=== PATIENT | male | born 1960 | race Caucasian/White ===

== ENCOUNTER 2023-07-13 08:47 | Outpatient (OUT) | payer OTHER, SELFPAY ==
[2023-07-13 09:06] LABS: Basophils Absolute Auto 0.1 10^3/uL (0.0-0.1); Basophils Percent Auto 0.5 % (0.2-2.0); Eosinophils Absolute Auto 0.2 10^3/uL (0.0-0.7); Eosinophils Percent Auto 2.4 % (0.9-7.0); Hematocrit 49.3 % (42.0-54.0); Hemoglobin 16.6 g/dL (14.0-18.0); Immature Granulocytes Abs Auto 0.04 10^3/uL (0.00-0.03); Immature Granulocytes Pct Auto 0.4 % (0.0-0.5); Lymphocytes Absolute Auto 1.7 10^3/uL (1.2-3.8); Lymphocytes Percent Auto 17.9 % (20.5-60.0); Mean Corpuscular HGB Conc 33.7 g/dL (29.9-35.2); Mean Corpuscular Volume 92.1 fL (80.0-94.0); Mean Platelet Volume 9.9 fL (9.5-13.5); Monocytes Absolute Auto 0.7 10^3/uL (0.3-0.8); Neutrophils Absolute Auto 6.7 10^3/uL (1.4-6.5); Neutrophils Percent Auto 71.8 % (43.0-75.0); Platelet Count 174 10^3/uL (150-450); Red Blood Count 5.35 10^6/uL (4.70-6.10); Red Cell Distribution Width 13.2 % (11.0-15.0); White Blood Count 9.4 10^3/uL (4.0-11.0)
[2023-07-13 10:27] LABS: Alanine Aminotransferase 19 U/L (16-63); Albumin Level 3.7 g/dL (3.4-5.0); Alkaline Phosphatase 69 U/L (46-116); Anion Gap 10.7; Aspartate Amino Transferase 17 U/L (15-37); BUN Creatinine Ratio 16.3; Bilirubin Total 0.6 mg/dL (0.2-1.0); Calcium 9.5 mg/dL (8.5-10.1); Carbon Dioxide 29.9 mmol/L (21.0-32.0); Chloride 103 mmol/L (98-107); Chol HDL Ratio 4.7; Cholesterol 185 mg/dL (<=200); Estimated GFR (African America >60 (>=60); Estimated GFR (Non-African Ame 59 (>=60); Globulin 3.8 g/dL; Glucose 109 mg/dL (74-106); HDL Cholesterol 39 mg/dL (40-60); Potassium 5.6 mmol/L (3.5-5.1); Sodium 138 mmol/L (136-145); Total Protein 7.5 g/dL (6.4-8.2); Triglycerides 210 mg/dL (<=150)
[2023-07-13 10:43] LABS: Estimated Average Glucose 105 mg/dL; Glycohemoglobin A1C 5.3 % (4.5-6.2)
== END 2023-07-13 08:48 | disposition home or self-care (01) ==
PROVIDERS: PCP Nurse Practitioner Family; Visit Provider Nurse Practitioner Family
DX: Z00.00 Encounter for general adult medical examination without abnormal findings (principal); Z12.5 Encounter for screening for malignant neoplasm of prostate
CPT/HCPCS: 36415; 80053; 80061; 83036; 85025; G0103

== ENCOUNTER 2023-07-17 15:30 | Outpatient (OUT) | payer OTHER, SELFPAY ==
[2023-07-17 16:47] LABS: Anion Gap 14.3; BUN Creatinine Ratio 20.2; Calcium 8.8 mg/dL (8.5-10.1); Chloride 103 mmol/L (98-107); Estimated GFR (African America >60 (>=60); Estimated GFR (Non-African Ame >60 (>=60); Glucose 119 mg/dL (74-106); Potassium 4.3 mmol/L (3.5-5.1); Sodium 139 mmol/L (136-145)
== END 2023-07-17 15:31 | disposition home or self-care (01) ==
LOC: LAB 15:32
PROVIDERS: PCP Nurse Practitioner Family; Visit Provider Nurse Practitioner Family
DX: E87.5 Hyperkalemia (principal)
CPT/HCPCS: 36415; 80048

== ENCOUNTER 2024-04-28 16:24 | Outpatient (OUT) | payer OTHER, SELFPAY ==
--- NOTE | 2024-04-28 | XR_ITS ---
The [address] [address] Patient Name: HELLEN FRANCISCO MRN: [id number] date: 1960 Sex: M Assigned Patient Location: [facility] Current Patient Location: Accession/Order Number: [id number] Exam Date: 04/28/2024 16:31 Report Date: 04/30/2024 07:21 At the request of: TABBY CUNNINGHAM Procedure: XR chest 2V EXAMINATION: XR chest 2V HISTORY: Dyspnea COMPARISON: No relevant comparison available. FINDINGS: LUNGS: No significant pulmonary parenchymal abnormalities. VASCULATURE: No increased pulmonary vasculature. PLEURA: No pneumothorax, effusion, or pleural thickening. CARDIAC: No cardiomegaly or cardiac silhouette abnormality. MEDIASTINUM: No visible mass or adenopathy. BONES: No fracture or visible bone lesion. OTHER: Negative. XR/XR chest 2V IMPRESSION: 1. No acute cardiopulmonary process or appreciable significant chronic interstitial changes. Electronically authenticated by: CHERRY JOHN Date: 04/30/2024 07:21
--- OUTSIDE RECORDS SUMMARY | 2024-04-28 16:39 | XMS_ITS | CCD ---
Author Organization [facility] Care Team Providers Care Blender Helper Name Role Phone MARISA FARZANEH Primary Care Unavailable ZIEBER, DR CHERRY Lopez Consulting Unavailable MARISA, FARZANEH Attending Unavailable MARISA, FARZANEH Admitting Unavailable MARISA, FARZANEH Consulting Unavailable MARISA, FARZANEH Primary Care Unavailable MARISA, FARZANEH Admitting Unavailable MARISA, FARZANEH Attending Unavailable ZIEBER, DR CHERRY Lopez Consulting Unavailable MARISA, FARZANEH Consulting Unavailable MARISA, FARZANEH Consulting Unavailable MARISA, FARZANEH Primary Care Unavailable MARISA, FARZANEH Admitting Unavailable MARISA, FARZANEH Attending Unavailable MARISA, FARZANEH Primary Care Unavailable TIMMIS, DR PRABHAKAR Admitting Unavailable TIMMIS, DR PRABHAKAR Attending Unavailable TIMMIS, DR PRABHAKAR Consulting Unavailable SHARP, KANDI Consulting Unavailable BROWN, CORINNA Consulting Unavailable KUCHIPUDI, ROD Consulting Unavailable MARISA, FARZANEH Primary Care Unavailable TIMMIS, DR PRABHAKAR Admitting Unavailable TIMMIS, DR PRABHAKAR Attending Unavailable TIMMIS, DR PRABHAKAR Consulting Unavailable MARISA, FARZANEH Primary Care Unavailable TIMMIS, DR PRABHAKAR Attending Unavailable TIMMIS, DR PRABHAKAR Consulting Unavailable TIMMIS, DR PRABHAKAR Admitting Unavailable ZIEBER, DR CHERRY Lopez Consulting Unavailable MARISA, FARZANEH Admitting Unavailable MARISA, FARZANEH Attending Unavailable MARISA, FARZANEH Primary Care Unavailable MARISA, FARZANEH Consulting Unavailable MARISA, FARZANEH Primary Care Unavailable TIMMIS, DR PRABHAKAR Admitting Unavailable TIMMIS, DR PRABHAKAR Attending Unavailable TIMMIS, DR PRABHAKAR Consulting Unavailable MORAN, ADRIAN Consulting Unavailable SIMIN ROMERO Consulting Unavailable MARISA, FARZANEH Admitting Unavailable MARISA, FARZANEH Attending Unavailable MARISA, FARZANEH Primary Care Unavailable Allergies Allergy Classification Reported Allergen(s) Allergy Type Date of Onset Reaction(s) Facility (1 source) strawberry allergenic extract Drug Allergy [facility] Repository Problems Active Problems Problem Classification Problem Date Documented Da te Episodic/Chronic Diseases of mouth; excluding dental (8 sources) Other diseases of salivary glands; Translations: [Other diseases of tongue] Onset: 08-10-2022 Episodic Disorders of lipid metabolism (5 sources) Pure hypercholesterole trevon, unspecified; Translations: [Hyperlipidemia, unspecified] Onset: 10-08-2022 Chronic Essential hypertension (1 source) Essential (primary) hypertension; Translations: [ESSENTIAL PRIMARY HYPERTENSION] Onset: 10-25-2022 Chronic Other aftercare (1 source) Other fpc (current) drug therapy; Translations: [OTH PENITENTIARY CURRENT DRUG THERAPY] Onset: 10-25-2022 Episodic Other and unspecified benign neoplasm (1 source) Benign neoplasm of parotid gland; Translations: [BENIGN NEOPLASM OF PAROTID GLAND] Onset: 10-25-2022 Episodic Other and unspecified benign neoplasm (1 source) Benign neoplasm of tongue; Translations: [BENIGN NEOPLASM OF TONGUE] Onset: 09-03-2022 Episodic Substance-related disorders (2 sources) Nicotine dependence, other tobacco product, uncomplicated; Translations: [Nicotine dependence, cigarettes, uncomplicated] Onset: 09-03-2022 Chronic Unclassified (1 source) CONTACT W/AND (SUSP) EXPOS COVID-19; Translations: [CONTACT W/AND (SUSP) EXPOS COVID-19] Onset: 10-09-2022 Past or Other Problems Problem Classification Problem Date Documented Da te Episodic/Chronic Lymphadenitis (4 sources) Other nonspecific lymphadenitis; Translations: [OTHER NONSPECIFIC LYMPHADENITIS] Onset: 07-07-2022 Episodic Other screening for suspected conditions (not mental disorders or infectious disease) (1 source) Encounter for screening for malignant neoplasm of prostate; Translations: [ENC SCREEN MALIG NEOPLASM PROSTATE] Onset: 06-19-2022 Episodic Other skin disorders (1 source) Localized swelling, mass and lump, unspecified; Translations: [LOCALIZED SWELLING MASS AND LUMP UNS] Onset: 06-19-2022 Episodic Results Test Name Value Interpretation Reference Range Facility LIPID PROFILEon 10-08-2022 CHOL-HDL RATIO NORM SEE BELOW Normal [facility] Comment on above: Result Comment: 3.3 - 4.4 LOW RISK 4.4 - 7.1 AVERAGE RISK 7.1 - 11.0 MODERATE RISK >11.0 HIGH RISK Performed By: #### C MP, LIPID #### [facility] [address] [address] [address] Isi Bruno Cholesterol [Mass/Vol] 175 mg/dL Normal <=200 [facility] Comment on above: Performed By: #### C MP, LIPID #### [facility] [address] [address] [address] Isi Bruno Cholesterol in HDL [Mass/Vol] 37 mg/dL Critically low 40-60 [facility] Comment on above: Performed By: #### C MP, LIPID #### [facility] [address] [address] [address] Isi Bruno Cholesterol in LDL [Mass/Vol] 102.6 mg/dL Normal [facility] Comment on above: Performed By: #### C MP, LIPID #### [facility] [address] [address] [address] Isi Bruno Cholesterol.total/Cho lesterol in HDL [Mass ratio] 4.7 {ratio} Normal [facility] Comment on above: Performed By: #### C MP, LIPID #### [facility] [address] [address] [address] Isi Bruno HDL NORMAL > or = 60 mg/dl - LO W CARDIOVASCULAR RISK <40 mg/dl - HIGH CARDIOVASCULAR RISK Normal [facility] Comment on above: Performed By: #### C MP, LIPID #### [facility] [address] [address] [address] Isi Bruno LDL CALC NORMAL SEE BELOW Normal [facility] Comment on above: Result Comment: <100 mg/dl OPTIMAL 100 - 129 mg/dl NEAR OR ABOVE OPTIMAL 130 - 159 mg/dl BORDERLINE HIGH 160 - 189 mg/dl HIGH >190 mg/dl VERY HIGH Performed By: #### C MP, LIPID #### [facility] [address] [address] [address] Isi Bruno Triglyceride [Mass/Vol] 177 mg/dL Critically high <=150 [facility] Comment on above: Performed By: #### C MP, LIPID #### [facility] [address] [address] [address] Isi Bruno VLDL CALC 35.4 mg/dL Normal [facility] Comment on above: Performed By: #### C MP, LIPID #### [facility] [address] [address] [address] Isi Bruno PROF 14(COMP METB)on 022 Albumin [Mass/Vol] 3.5 g/dL Normal 3.4-5.0 [facility] Comment on above: Performed By: #### C MP, LIPID #### [facility] [address] [place] [address] Dr. Isi Bruno Albumin/Globulin [Mass ratio] 1.0 {ratio} Normal [facility] Comment on above: Performed By: #### C MP, LIPID #### [facility] [address] [place] [address] Dr. Isi Bruno ALP [Catalytic activity/Vol] 65 U/L Normal 46-116 [facility] Comment on above: Performed By: #### C MP, LIPID #### [facility] [address] [place] [address] Dr. Isi Bruno ALT [Catalytic activity/Vol] 15 U/L Critically low 16-63 [facility] Comment on above: Performed By: #### C MP, LIPID #### [facility] [address] [place] [address] Dr. Isi Bruno Anion gap [Moles/Vol] 8.3 mmol/L Normal [facility] Comment on above: Performed By: #### C MP, LIPID #### [facility] [address] [place] [address] Dr. Isi Bruno AST [Catalytic activity/Vol] 12 U/L Critically low 15-37 [facility] Comment on above: Performed By: #### C MP, LIPID #### [facility] [address] [place] [address] Dr. Isi Bruno Bilirubin [Mass/Vol] 0.4 mg/dL Normal 0.2-1.0 [facility] Comment on above: Performed By: #### C MP, LIPID #### [facility] [address] [place] [address] Dr. Isi Bruno Calcium [Mass/Vol] 8.8 mg/dL Normal 8.5-10.1 [facility] Comment on above: Performed By: #### C MP, LIPID #### [facility] [address] [place] [address] Dr. Isi Bruno Chloride [Moles/Vol] 104 mmol/L Normal 98-107 [facility] Comment on above: Performed By: #### C MP, LIPID #### [facility] [address] [place] [address] Dr. Isi Bruno CO2 [Moles/Vol] 28.3 mmol/L Normal 21.0-32.0 [facility] Comment on above: Performed By: #### C MP, LIPID #### [facility] [address] [place] [address] Dr. Isi Bruno Creatinine [Mass/Vol] 1.24 mg/dL Normal 0.70-1.30 [facility] Comment on above: Performed By: #### C MP, LIPID #### [facility] [address] [place] [address] Dr. Isi Bruno EGFR-AF ISRAELI >60 Normal >=60 [facility] Comment on above: Performed By: #### C MP, LIPID #### [facility] [address] [place] [address] Dr. Isi Bruno EGFR-NON AF ISRAELI 59 mL/min/1.73m2 Critically low >=60 [facility] Comment on above: Performed By: #### C MP, LIPID #### [facility] [address] [place] [address] Dr. Isi Bruno Globulin (S) [Mass/Vol] 3.4 g/dL Normal [facility] Comment on above: Performed By: #### C MP, LIPID #### [facility] [address] [place] [address] Dr. Isi Bruno Glucose [Mass/Vol] 101 mg/dL Normal 74-[address] [facility] Comment on above: Performed By: #### C MP, LIPID #### [facility] [address] [place] [address] Dr. Isi Bruno Potassium [Moles/Vol] 4.6 mmol/L Normal 3.5-5.1 [facility] Comment on above: Performed By: #### C MP, LIPID #### [facility] [address] [place] [address] Dr. Isi Bruno Protein [Mass/Vol] 6.9 g/dL Normal 6.4-8.2 [facility] Comment on above: Performed By: #### C MP, LIPID #### [facility] [address] [place] [address] Dr. Isi Bruno Sodium [Moles/Vol] 136 mmol/L Normal 136-145 [facility] Comment on above: Performed By: #### C MP, LIPID #### [facility] [address] [place] [address] Dr. Isi Bruno Urea nitrogen [Mass/Vol] 21.0 mg/dL Critically high 7.0-18.0 [facility] Comment on above: Performed By: #### C MP, LIPID #### [facility] [address] [place] [address] Dr. Isi Bruno Urea nitrogen/Creatinine [Mass ratio] 16.9 mg/mg Normal [facility] Comment on above: Performed By: #### C MP, LIPID #### [facility] [address] [place] [address] Dr. Isi Bruno Covid-19 PCR ([facility])on 09-25 SARS-CoV-2 (COVID-19) RNA DENISA+probe Ql (Unsp spec) Not detected Normal NOT DETECTED [facility] Comment on above: Result Comment: This test is not yet approved or cleared by the [place] FDA. When there are no FDA-approved or cleared tests available, and other criteria are met, FDA can make tests available under an emergency access mechanism called an Emergency Use Authorization (EUA). The EUA for this test is supported by the Instrumentation And Control Technician of Health and Human Service's (HHS's) declaration that circumstances exist to justify the emergency use of in vitro diagnostics for the detection and/or diagnosis of the virus that causes COVID-19. This EUA will remain in effect (meaning this test can be used) for the duration of the COVID-19 declaration justifying emergency of IVDs, unless it is terminated or revoked by FDA (after which the test may no longer be used). When diagnostic testing is negative, the possibility of a false negative should be considered in the context of a patient's recent exposures and the presence of clinical signs and symptoms consistent with SARS-CoV-2. Performed By: #### C VDTB ####[facility] [id number] [place], [place] [id number]. Isi Bruno CBC AUTO DIFFon 08-24-2022 BASO # 0.0 103/ul Normal 0.0-0.1 [facility] Comment on above: Performed By: #### C BC #### [facility] [address] [address] [address] Isi Bruno Basophils/100 WBC (Bld) 0.5 % Normal 0.2-2.0 [facility] Comment on above: Performed By: #### C BC #### [facility] [address] [place] [address] Dr. Isi Bruno EO # 0.2 103/ul Normal 0.0-0.7 [facility] Comment on above: Performed By: #### C BC #### [facility] [address] [address] [address] Isi Bruno Eosinophils/100 WBC (Bld) 2.0 % Normal 0.9-7.0 [facility] Comment on above: Performed By: #### C BC #### [facility] [address] [address] [address] Isi Bruno Erythrocyte distribution width (RBC) [Ratio] 13.3 % Normal 11.0-15.0 [facility] Comment on above: Performed By: #### C BC #### [facility] [address] [place] [address] Dr. Isi Bruno Hematocrit (Bld) [Volume fraction] 45.3 % Normal 42.0-54.0 [facility] Comment on above: Performed By: #### C BC #### [facility] [address] [place] [address] Dr. Isi Bruno Hemoglobin (Bld) [Mass/Vol] 15.1 g/dL Normal 14.0-18.0 [facility] Comment on above: Performed By: #### C BC #### [facility] [address] [address] [address] Isi Bruno IG # 0.03 10e3/ul Normal 0.00-0.03 [facility] Comment on above: Performed By: #### C BC #### [facility] [address] [address] [address] Isi Bruno IG % 0.3 % Normal 0.0-0.5 [facility] Comment on above: Performed By: #### C BC #### [facility] [address] [place] [address] Dr. Isi Bruno LYMPH # 1.3 103/ul Normal 1.2-3.8 [facility] Comment on above: Performed By: #### C BC #### [facility] [address] [place] [address] Dr. Isi Bruno Lymphocytes/100 WBC (Bld) 14.9 % Critically low 20.5-60.0 [facility] Comment on above: Performed By: #### C BC #### [facility] [address] [place] [address] Dr. Isi Bruno MANUAL DIFF REQ NO Normal [facility] Comment on above: Performed By: #### C BC #### [facility] [address] [place] [address] Dr. Isi Bruno MCH (RBC) [Entitic mass] 30.8 pg Normal 25.9-34.0 [facility] Comment on above: Performed By: #### C BC #### [facility] [address] [place] [address] Dr. Isi Bruno MCHC (RBC) [Mass/Vol] 33.3 g/dL Normal 29.9-35.2 [facility] Comment on above: Performed By: #### C BC #### [facility] [address] [place] [address] Dr. Isi Bruno MCV (RBC) [Entitic vol] 92.3 fL Normal 80.0-94.0 [facility] Comment on above: Performed By: #### C BC #### [facility] [address] [place] [address] Dr. Isi Bruno MONO # 0.7 103/ul Normal 0.3-0.8 [facility] Comment on above: Performed By: #### C BC #### [facility] [address] [place] [address] Dr. Isi Bruno Monocytes/100 WBC (Bld) 7.7 % Normal 1.7-12.0 [facility] Comment on above: Performed By: #### C BC #### [facility] [address] [place] [address] Dr. Isi Bruno NEUT # 6.5 103/ul Normal 1.4-6.5 [facility] Comment on above: Performed By: #### C BC #### [facility] [address] [place] [address] Dr. Isi Bruno Neutrophils/100 WBC (Bld) 74.6 % Normal 43.0-75.0 [facility] Comment on above: Performed By: #### C BC #### [facility] [address] [place] [address] Dr. Isi Bruno Platelet mean volume (Bld) [Entitic vol] 10.4 fL Normal 9.5-13.5 [facility] Comment on above: Performed By: #### C BC #### [facility] [address] [place] [address] Dr. Isi Bruno PLT 171 103/ul Normal 150-450 [facility] Comment on above: Performed By: #### C BC #### [facility] [address] [place] [address] Dr. Isi Bruno RBC 4.91 106/ul Normal 4.70-6.10 [facility] Comment on above: Performed By: #### C BC #### [facility] [address] [place] [address] Dr. Isi Bruno WBC 8.7 103/ul Normal 4.0-11.0 [facility] Comment on above: Performed By: #### C BC #### [facility] [address] [place] [address] Dr. Isi Bruno Covid-19 PCR ([facility])on 07-28 SARS-CoV-2 (COVID-19) RNA DENISA+probe Ql (Unsp spec) Not detected Normal NOT DETECTED [facility] Comment on above: Result Comment: This test is not yet approved or cleared by the [place] FDA. When there are no FDA-approved or cleared tests available, and other criteria are met, FDA can make tests available under an emergency access mechanism called an Emergency Use Authorization (EUA). The EUA for this test is supported by the Instrumentation And Control Technician of Health and Human Service's (HHS's) declaration that circumstances exist to justify the emergency use of in vitro diagnostics for the detection and/or diagnosis of the virus that causes COVID-19. This EUA will remain in effect (meaning this test can be used) for the duration of the COVID-19 declaration justifying emergency of IVDs, unless it is terminated or revoked by FDA (after which the test may no longer be used). When diagnostic testing is negative, the possibility of a false negative should be considered in the context of a patient's recent exposures and the presence of clinical signs and symptoms consistent with SARS-CoV-2. Performed By: #### C VDTBH #### [facility] [address] [place] [address] Dr. Isi Bruno PROTIMEon 08-24-2022 INR Coag (PPP) [Relative time] 1.04 {INR} Normal [facility] Comment on above: Performed By: #### P T, PTT #### [facility] [address] [place] [address] Dr. Isi Bruno INR GUIDELINES SEE BELOW Normal [facility] Comment on above: Result Comment: COLLIN RED INR: 2.0 - 3.0 CONDITIONS NOT LISTED BELOW 2.5 - 3.5 FOR PROSTHETIC HEART VALVE REPLACEMENT 2.5 - 3.5 RECURRENT THROMBOSIS Performed By: #### P T, PTT #### [facility] [address] [place] [address] Dr. Isi Bruno PT Coag (PPP) [Time] 11.2 s Normal 9.0-11.6 [facility] Comment on above: Performed By: #### P T, PTT #### [facility] [address] [place], [place] [address] Dr. Isi Bruno PTTon 08-24-2022 aPTT Coag (Bld) [Time] 33.0 s Normal 22.3-36.2 [facility] Comment on above: Performed By: #### P T, PTT #### [facility] [address] [place], [place] [address] Dr. 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 08/09/2022 Faxed to Farzaneh Flores CNP. 08/10/2022 Verified with office nurse that report was present in the office. Original Report EXAMINATION: US MUSC_SOFT TISSUE BX HISTORY: Mass of right parotid gland COMPARISON: CT neck soft tissue 07/07/2022, ultrasound soft tissue head-neck 06/16/2022 TECHNIQUE: After obtaining informed consent, an ultrasound-guided biopsy was performed in the usual sterile manner. FINDINGS: IMAGING: Ultrasound guidance BIOPSY NEEDLE: 20-gauge spring-loaded core biopsy needle. SPECIMEN TYPE, #, LOCATION: 3 soft tissue cores; right parotid gland mass MEDICATION: 1% buffered lidocaine for local anesthesia COMPLICATIONS: None. LABORATORY: Pending OTHER: Negative. IMPRESSION: Uneventful ultrasound guided biopsy. The patient was instructed to obtain follow up care and biopsy results from the referring physician. Normal [facility] CT NECK ST W CONon CT NECK ST W CON EXAMINATION: CT NECK ST W CON HISTORY: Lymphadenitis ; nontender lump upper right neck posterior to the ear for 2 months COMPARISON: Ultrasound soft tissue head-neck 06/16/2022 TECHNIQUE: Axial, Coronal, and Sagittal CT images created with IV contrast. Dose reduction techniques were achieved by using automated exposure control and/or adjustment of mA and/or kV according to patient size and/or use of iterative reconstruction technique. FINDINGS: NASOPHARYNX: No asymmetry of the fossae of Rosenmuller and torus tubarius. ORAL CAVITY: No visible mass. OROPHARYNX: No asymmetry of the facial and lingual tonsils. HYPOPHARYNX: No mass or other visible lesion. LARYNX: No mass or asymmetry of the vocal cords. SINUSES: Mucosal thickening, greatest within left maxillary sinus. NECK GLADS: 2 adjacent 1.3 cm dense nodules within posterior aspect of right parotid gland. LYMPH NODES: No pathological-appearin g or enlarged lymph nodes. VASCULATURE: No suspicious abnormality. BONES: Degenerative disc disease of cervical spine. No significant osseous lesions. OTHER: No additional imaging findings. IMPRESSION: 1. Right parotid gland contains 2 adjacent 1.8 cm dense nodules corresponding to patient's palpable lump; nonspecific. Ultrasound-guided fine-needle aspiration is recommended. 2. No lymphadenopathy within the anterior or posterior cervical chains. Electronically authenticated by: CHERRY JOHN Date: 2022-07-09 07:29 Normal [facility] INSULINon 06-18-2022 Insulin 12.2 uIU/mL Normal 2.6-24.9 [facility] Comment on above: Performed By: #### I NSULIN ####[facility] [id number] [id number] Bruno US ST HEAD_NECKon 06-17-[address] HEAD_NECK EXAM: US ST HEAD_NEC K HISTORY: Mass of body structure ; upper right neck lump inferior to the ear for one month COMPARISON: None. TECHNIQUE: Ultrasound evaluation of upper right neck. FINDINGS: 2.5 x 1.4 x 1.2 cm mixed cystic and solid well-circumscribed lesion within versus adjacent the right parotid gland. Adjacent 1.7 x 1.1 x 0.9 cm well-circumscribed lesion suggestive of an abnormal lymph node. IMPRESSION: 1. Normal-appearing lesions/lymph nodes within the upper right neck corresponding to patient's palpable lump. Consider CT imaging of the neck soft tissues with IV contrast to evaluate for possible additional lesions. Also consider ultrasound-guided fine-needle aspiration of lesions for diagnosis. Electronically authenticated by: CHERRY JOHN Date: 2022-06-17 10:01 Normal [facility] CBC AUTO DIFFon 06-16-2022 BASO # 0.1 103/ul Normal 0.0-0.1 [facility] Comment on above: Performed By: #### C BC #### [facility] [address] [place] [address] Dr. Isi Bruno Basophils/100 WBC (Bld) 0.5 % Normal 0.2-2.0 [facility] Comment on above: Performed By: #### C BC #### [facility] [address] [place] [address] Dr. Isi Bruno EO # 0.3 103/ul Normal 0.0-0.7 [facility] Comment on above: Performed By: #### C BC #### [facility] [address] [place] [address] Dr. Isi Bruno Eosinophils/100 WBC (Bld) 2.8 % Normal 0.9-7.0 [facility] Comment on above: Performed By: #### C BC #### [facility] [address] [place] [address] Dr. Isi Bruno Erythrocyte distribution width (RBC) [Ratio] 13.4 % Normal 11.0-15.0 [facility] Comment on above: Performed By: #### C BC #### [facility] [address] [place] [address] Dr. Isi Bruno Hematocrit (Bld) [Volume fraction] 45.6 % Normal 42.0-54.0 [facility] Comment on above: Performed By: #### C BC #### [facility] [address] [place] [address] Dr. Isi Bruno Hemoglobin (Bld) [Mass/Vol] 15.6 g/dL Normal 14.0-18.0 [facility] Comment on above: Performed By: #### C BC #### [facility] [address] [place] [address] Dr. Isi Bruno IG # 0.04 10e3/ul Critically high 0.00-0.03 [facility] Comment on above: Performed By: #### C BC #### [facility] [address] [place] [address] Dr. Isi Bruno IG % 0.4 % Normal 0.0-0.5 [facility] Comment on above: Performed By: #### C BC #### [facility] [address] [place] [address] Dr. Isi Bruno LYMPH # 1.7 103/ul Normal 1.2-3.8 [facility] Comment on above: Performed By: #### C BC #### [facility] [address] [place] [address] Dr. Isi Bruno Lymphocytes/100 WBC (Bld) 18.6 % Critically low 20.5-60.0 [facility] Comment on above: Performed By: #### C BC #### [facility] [address] [place] [address] Dr. Isi Bruno MANUAL DIFF REQ NO Normal [facility] Comment on above: Performed By: #### C BC #### [facility] [address] [place] [address] Dr. Isi Bruno MCH (RBC) [Entitic mass] 30.8 pg Normal 25.9-34.0 [facility] Comment on above: Performed By: #### C BC #### [facility] [address] [place] [address] Dr. Isi Bruno MCHC (RBC) [Mass/Vol] 34.2 g/dL Normal 29.9-35.2 [facility] Comment on above: Performed By: #### C BC #### [facility] [address] [place] [address] Dr. Isi Bruno MCV (RBC) [Entitic vol] 89.9 fL Normal 80.0-94.0 [facility] Comment on above: Performed By: #### C BC #### [facility] [address] [place] [address] Dr. Isi Bruno MONO # 0.8 103/ul Normal 0.3-0.8 [facility] Comment on above: Performed By: #### C BC #### [facility] [address] [place] [address] Dr. Isi Bruno Monocytes/100 WBC (Bld) 8.5 % Normal 1.7-12.0 [facility] Comment on above: Performed By: #### C BC #### [facility] [address] [address] [address] Isi Bruno NEUT # 6.4 103/ul Normal 1.4-6.5 [facility] Comment on above: Performed By: #### C BC #### [facility] [address] [address] [address] Isi Bruno Neutrophils/100 WBC (Bld) 69.2 % Normal 43.0-75.0 [facility] Comment on above: Performed By: #### C BC #### [facility] [address] [address] [address] Isi Bruno Platelet mean volume (Bld) [Entitic vol] 10.0 fL Normal 9.5-13.5 [facility] Comment on above: Performed By: #### C BC #### [facility] [address] [address] [address] Isi Bruno PLT 168 103/ul Normal 150-450 [facility] Comment on above: Performed By: #### C BC #### [facility] [address] [address] [address] Isi Bruno RBC 5.07 106/ul Normal 4.70-6.10 [facility] Comment on above: Performed By: #### C BC #### [facility] [address] [address] [address] Isi Bruno WBC 9.2 103/ul Normal 4.0-11.0 [facility] Comment on above: Performed By: #### C BC #### [facility] [address] [address] [address] Isi Bruno GLYCOHEMOGLOBIN A1Con 2021 ADA RECOMMENDATION SEE BELOW Normal [facility] Comment on above: Result Comment: ADA RECOMMENDED LIMIT 4.0 - 6.0 ADA THERAPEUTIC TARGET < 7.0 ACTION SUGGESTED > 7.0 Performed By: #### A 1C ####[facility] [address] [address]Dr. Isi Bruno Glucose [Mass/Vol] 111 mg/dL Normal [facility] Comment on above: Performed By: #### A 1C ####[facility] [address] [place], [place] [address]Qw. Isi Bruno HbA1c (Bld) [Mass fraction] 5.5 % Normal 4.5-6.2 [facility] Comment on above: Performed By: #### A 1C ####[facility] [address] [id number]. Isi Bruno LIPID PROFILEon 06-16-2022 CHOL-HDL RATIO NORM SEE BELOW Normal [facility] Comment on above: Result Comment: 3.3 - 4.4 LOW RISK 4.4 - 7.1 AVERAGE RISK 7.1 - 11.0 MODERATE RISK >11.0 HIGH RISK Performed By: #### L IPID, CMP, URIC ####[facility] [address] [id number]. Isi Bruno Cholesterol [Mass/Vol] 191 mg/dL Normal <=200 [facility] Comment on above: Performed By: #### L IPID, CMP, URIC ####[facility] [address] [id number]. Isi Bruno Cholesterol in HDL [Mass/Vol] 33 mg/dL Critically low 40-60 [facility] Comment on above: Performed By: #### L IPID, CMP, URIC ####[facility] [address] [id number]. Isi Bruno Cholesterol in LDL [Mass/Vol] 120.0 mg/dL Normal [facility] Comment on above: Performed By: #### L IPID, CMP, URIC ####[facility] [address] [place], [place] [address]Ny. Isi Bruno Cholesterol.total/Cho lesterol in HDL [Mass ratio] 5.8 {ratio} Normal [facility] Comment on above: Performed By: #### L IPID, CMP, URIC ####[facility] [address] [place], [place] [address]Au. Isi Bruno HDL NORMAL > or = 60 mg/dl - LO W CARDIOVASCULAR RISK <40 mg/dl - HIGH CARDIOVASCULAR RISK Normal [facility] Comment on above: Performed By: #### L IPID, CMP, URIC ####[facility] [address] [address]Dr. Isi Bruno LDL CALC NORMAL SEE BELOW Normal [facility] Comment on above: Result Comment: <100 mg/dl OPTIMAL 100 - 129 mg/dl NEAR OR ABOVE OPTIMAL 130 - 159 mg/dl BORDERLINE HIGH 160 - 189 mg/dl HIGH >190 mg/dl VERY HIGH Performed By: #### L IPID, CMP, URIC ####[facility] [address] [address]Dr. Isi Bruno Triglyceride [Mass/Vol] 190 mg/dL Critically high <=150 [facility] Comment on above: Performed By: #### L IPID, CMP, URIC ####[facility] [address] [address]Dr. Isi Bruno VLDL CALC 38.0 mg/dL Normal [facility] Comment on above: Performed By: #### L IPID, CMP, URIC ####[facility] [address] [address]Dr. Isi Bruno PROF 14(COMP METB)on 022 Albumin [Mass/Vol] 3.4 g/dL Normal 3.4-5.0 [facility] Comment on above: Performed By: #### L IPID, CMP, URIC ####[facility] [address] [address]Dr. Isi Bruno Albumin/Globulin [Mass ratio] 1.0 {ratio} Normal [facility] Comment on above: Performed By: #### L IPID, CMP, URIC ####[facility] [address] [address]Dr. Isi Bruno ALP [Catalytic activity/Vol] 68 U/L Normal 46-116 [facility] Comment on above: Performed By: #### L IPID, CMP, URIC ####[facility] [address] [address]Dr. Isi Bruno ALT [Catalytic activity/Vol] 16 U/L Normal 16-63 [facility] Comment on above: Performed By: #### L IPID, CMP, URIC ####[facility] [address] [address]Dr. Isi Bruno Anion gap [Moles/Vol] 10.4 mmol/L Normal [facility] Comment on above: Performed By: #### L IPID, CMP, URIC ####[facility] [address] [address]Dr. Isi Bruno AST [Catalytic activity/Vol] 12 U/L Critically low 15-37 [facility] Comment on above: Performed By: #### L IPID, CMP, URIC ####[facility] [address] [address]Dr. Isi Bruno Bilirubin [Mass/Vol] 0.5 mg/dL Normal 0.2-1.0 [facility] Comment on above: Performed By: #### L IPID, CMP, URIC ####[facility] [address] [place], [place] [address]Dr. Isi Bruno Calcium [Mass/Vol] 8.8 mg/dL Normal 8.5-10.1 [facility] Comment on above: Performed By: #### L IPID, CMP, URIC ####[facility] [address] [place], [place] [address]Dr. Isi Bruno Chloride [Moles/Vol] 105 mmol/L Normal 98-107 [facility] Comment on above: Performed By: #### L IPID, CMP, URIC ####[facility] [address] [place], [place] [address]Dr. Isi Bruno CO2 [Moles/Vol] 25.9 mmol/L Normal 21.0-32.0 [facility] Comment on above: Performed By: #### L IPID, CMP, URIC ####[facility] [address] [place], [place] [address]Dr. Isi Bruno Creatinine [Mass/Vol] 1.19 mg/dL Normal 0.70-1.30 [facility] Comment on above: Performed By: #### L IPID, CMP, URIC ####[facility] [address] [place], [place] [address]Dr. Isi Bruno EGFR-AF ISRAELI >60 Normal >=60 [facility] Comment on above: Performed By: #### L IPID, CMP, URIC ####[facility] [address] [address]Dr. Isi Bruno EGFR-NON AF ISRAELI >60 Normal >=60 [facility] Comment on above: Performed By: #### L IPID, CMP, URIC ####[facility] [address] [address]Dr. Isi Bruno Globulin (S) [Mass/Vol] 3.4 g/dL Normal [facility] Comment on above: Performed By: #### L IPID, CMP, URIC ####[facility] [address] [address]Dr. Isi Bruno Glucose [Mass/Vol] 95 mg/dL Normal 74-[address] [facility] Comment on above: Performed By: #### L IPID, CMP, URIC ####[facility] [address] [address]Dr. Isi Bruno Potassium [Moles/Vol] 4.3 mmol/L Normal 3.5-5.1 [facility] Comment on above: Performed By: #### L IPID, CMP, URIC ####[facility] [address] [address]Dr. Isi Bruno Protein [Mass/Vol] 6.8 g/dL Normal 6.4-8.[address] [facility] Comment on above: Performed By: #### L IPID, CMP, URIC ####[facility] [address] [address]Dr. Isi Bruno Sodium [Moles/Vol] 137 mmol/L Normal 136-[address] [facility] Comment on above: Performed By: #### L IPID, CMP, URIC ####[facility] [address] [address]Dr. Isi Bruno Urea nitrogen [Mass/Vol] 23.0 mg/dL Critically high 7.0-18.0 [facility] Comment on above: Performed By: #### L IPID, CMP, URIC ####[facility] [address] [place], [place] [address]Lj. Isi Bruno Urea nitrogen/Creatinine [Mass ratio] 19.3 mg/mg Normal [facility] Comment on above: Performed By: #### L IPID, CMP, URIC ####[facility] [address] [place], [place] [address]Uq. Isi Bruno URIC ACID SERUMon 06-16-2022 Urate [Mass/Vol] 5.7 mg/dL Normal 3.5-7.2 [facility] Comment on above: Performed By: #### L IPID, CMP, URIC ####[facility] [address] [place], [place] [address]Jc. Isi Bruno Encounters Encounter Date Encounter Type Care Provider Facility Start: 10-09-2022 Encounter for prepro cedural laboratory examination DR CHRISTAL LOWERY [facility] Start: 10-09-2022 End: 10-10-2022 ambulatory FARZANEH FLORES Facility:[facility] Start: 10-08-2022 End: 10-09-2022 ambulatory FARZANEH FLORES Facility:[facility] Start: 10-05-2022 End: 10-06-2022 ambulatory FARZANEH FLORES Facility:[facility] Start: 10-05-2022 End: 10-06-2022 Encounter for preprocedural laboratory examination FARZANEH FLORES Facility:[facility] Start: 08-28-2022 End: 08-28-2022 ambulatory FARZANEH FLORES Facility:[facility] Start: 08-27-2022 Encounter for prepro cedural cardiovascular examination DR CHRISTAL LOWERY [facility] Start: 08-25-2022 ambulatory FARZANEH FLORES Facility: [facility] Start: 08-24-2022 End: 08-25-2022 ambulatory FARZANEH FLORES Facility:[facility] Start: 08-07-2022 End: 08-07-[address] CHERRY JOHN Facility:[facility] Start: 07-07-2022 End: 07-08-2022 ambulatory FARZANEH FLORES Facility:[facility] Start: 06-19-2022 Encounter for genera l adult medical examination without abnormal findings FARZANEH FLORES [facility] Start: 06-16-2022 End: 06-17-2022 ambulatory FARZANEH FLORES Facility:[facility] Start: 06-16-2022 End: 06-17-2022 Encounter for general adult medical examination without abnormal findings FARZANEH FLORES Facility:[facility] Procedures Date Procedure Procedure Detail Performing Clinician Start: 06-16-2022 PSA screening FARZANEH WYNN Comment on above: Performed By: #### P [facility] #### [facility] [address] [address] [address] Isi Bruno Payers Date Payer Category Payer Private Health Insurance [id number] 1961 Self-pay 1960 Unknown [id number] 2.16.84 [id number] 1958 Unknown [id number] 2.16.84 [id number] 1958 Unknown [id number] 2.16.84 [id number] 1958 Unknown [id number] 2.16.84 [id number] 1958 Unknown [id number] 2.16.84 [id number] 1958 Unknown [id number] 2.16.84 [id number] 1958 Unknown [id number] 2.16.84 [id number] 1958 Unknown [id number] 2.16.84 [id number] 1958 Unknown [id number] 2.16.84 [id number] Clinical Note 10-09-2022 Note Date & Type Note Facility 10-09-2022 Note OPERATIVE NOTE OPERATION DATE: 10/09/2022 PRIMARY CARE PROVIDER: Melina Flores CNP SURGEON: Christal Lowery M.D. ARCHITECTURAL MODELER: DAKSHA Eagle PREOPERATIVE DIAGNOSIS: Tongue lesion and right parotid mass x2. POSTOPERATIVE DIAGNOSIS: Tongue lesion and right parotid mass x2. PROCEDURE: Removal of tongue lesion and right lateral parotidectomy with facial nerve dissection and sternocleidomastoid muscle flap. 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 He was also noted, incidentally on examination, to have a suspicious lesion of the midline tongue base. 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 PROCEDURE: Patient identified in the holding area and taken back to the OR where he was placed in the supine position. After induction of general endotracheal anesthesia, a Irineo mouth gag was put in position, tongue was grasped and prepped with Betadine, and using a [place] tip Bovie, an elliptical incision was made around the patient's nodular lesion in the midline of the anterior tongue base. There was no bleeding. The right face and neck were then prepped and draped in a sterile fashion, after a shoulder roll was placed, and standard face lift incision was made including the parotid gland and the patient's palpable masses. A temporary tarsorrhaphy of the right eye was performed using a 6-0 nylon stitch and facial nerve monitoring leads were placed in the right mentalis muscle, the right inferior orbicularis fanny and the right superior and inferior orbicularis oculi muscles. Proper function was verified with tap test. Then incision was made with a 10 blade and dissection carried out through the platysmus and SMAS with electrocautery. A flap was then elevated using a curved Will. The flap was retracted anteriorly. The ear lobe was retracted posteriorly and then, using blunt dissection with a hemostat and bipolar cautery, the parotid gland and tumors were elevated off of the sternocleidomastoid muscle away from the tragus. The trunk of the facial nerve was identified in its usual anatomic position, and using a Gonsales hemostat, dissection of the facial nerve was undertaken from inferior to superior. Once the lower division of the facial nerve was completely dissected, the patient's tumor and surrounding parotid gland were completely free of the facial nerve and they were then removed with blunt dissection and bipolar cautery. A post dissection stimulation of the main trunk of the facial nerve showed all ranges to be intact electrically. Then, the sternocleidomastoid muscle was grasped with two Allis forceps and, using electrocautery, the anterior portion of the sternocleidomastoid muscle was elevated superiorly. Once the elevation was carried out to near the mastoid tip, the muscle was rotated anteriorly to easily fill the space created by the parotidectomy. The wound was then copiously irrigated with normal saline containing Clindamycin and a #7 round Paul-Moore drain was placed through a stab incision posterior to the incision. The skin was then closed with two deep 4-0 Vicryl suture layers and a running 5-0 nylon stitch. A pressure dressing was placed and the patient was awakened and taken to the recovery room in good condition. [facility] Clinical Note 08-28-2022 Note Date & Type Note Facility 08-28-2022 Note OPERATIVE NOTE OPERATION DATE: 08/28/2022 PRIMARY CARE PROVIDER: Farzaneh Flores CNP SURGEON: Christal Lowery M.D. PREOPERATIVE DIAGNOSIS: Tongue base mass. POSTOPERATIVE DIAGNOSIS: Tongue base mass. PROCEDURE: Direct laryngoscopy and biopsy of tongue base mass. ANESTHESIA: General endotracheal. COMPLICATIONS: None. FINDINGS: A 5 x 10 mm hard mass in the midline tongue base, immediately posterior to the cecum. INDICATIONS: This 62-year-old man presented for evaluation of right parotid masses and was found, on examination, to have a mass of the tongue base concerning for possible carcinoma. PROCEDURE: Patient identified in the holding area and taken back to the OR where he was placed in the supine position. After induction of general endotracheal anesthesia, the table was turned, a shoulder roll placed and a tooth guard put in position. A Dedo laryngoscope was used to examine the tonsillar fossa, tongue base, piriform sinuses and supraglottic larynx and endolarynx. There were no abnormalities evident other than as noted above on the midline tongue base. The tongue was then grasped with a sponge and retracted anteriorly, and then using a cup forcep, two biopsies were obtained and sent for pathologic analysis. Hemostasis was achieved with suction Bovie. The patient tolerated the procedure well, and he was awakened and taken to the recovery room in good condition. [facility] Summary Purpose Family History No Family History Records Found Advance Directives No Advanced Directives Records Found Additional Source Comments (unrecognized sect ion and content) No Status Records Found INFORMATION SOURCE (unrecogn ized section and content) DATE CREATED AUTHOR 11/17/2022 The [facility] FOR RECORDS PERTAINING TO PATIENTS WHO ARE OR HAVE BEEN ENROLLED IN A CHEMICAL DEPENDENCY/SUBSTANCEABUSE PROGRAM, SOME INFORMATION MAY BE OMITTED. This clinical summary was aggregated from multiple sources. Caution should be exercised in using it in the provision of clinical care. This summary normalizes information from multiple sources, and as a consequence, information in this document may materially change the coding, format and clinical context of patient data. In addition, data may be omitted in some cases. CLINICAL DECISIONS SHOULD BE BASED ON THE PRIMARY CLINICAL RECORDS. [employer] [facility]. provides no warranty or guarantee of the accuracy or completeness of information in this document.
== END 2024-04-28 16:25 | disposition home or self-care (01) ==
LOC: RAD 16:24
PROVIDERS: PCP Nurse Practitioner Family; Visit Provider Nurse Practitioner Family
DX: R06.02 Shortness of breath (principal)
CPT/HCPCS: 71046

== ENCOUNTER 2025-06-24 11:25 | Outpatient (OUT) | payer BC, SELFPAY ==
--- OUTSIDE RECORDS SUMMARY | 2025-06-24 11:48 | XMS_ITS | CCD ---
Author Organization [facility] Care Team Providers Care Vessel Scrapper Helper Name Role Phone MARISA FARZANEH Primary Care Unavailable ZIEBER, DR CHERRY Lopez Consulting Unavailable MARISA, FARZANEH Attending Unavailable MARISA, FARZANEH Admitting Unavailable MRAISA, FARZANEH Consulting Unavailable MARISA, FARZANEH Primary Care [...] source) strawberry allergenic extract Drug Allergy [facility] Repository Problems Active Problems Problem Classification Problem [...] 10-25-2022 Chronic Other aftercare (1 source) Other termite control technician (current) drug therapy; Translations: [OTH HEALTH COACH CURRENT DRUG THERAPY] Onset: 10-25-2022 Episodic Other [...] RATIO NORM SEE BELOW Normal [facility] Comment on above: Result Comment: 3.3 - 4.4 LOW RISK 4.4 - 7.1 AVERAGE RISK 7.1 - 11.0 MODERATE RISK >11.0 HIGH RISK Performed By: #### C MP, LIPID #### [facility] [address] [address] [address] Isi Bruno Cholesterol [Mass/Vol] 175 mg/dL Normal <=[address] [facility] Comment on above: Performed By: #### C MP, LIPID #### [facility] [address] [address] [address] Isi Bruno Cholesterol in HDL [Mass/Vol] 37 mg/dL Critically low 40-[address] [facility] Comment on above: Performed By: #### C MP, LIPID #### [facility] [address] [address] [address] Isi Bruno Cholesterol in LDL [Mass/Vol] 102.6 mg/dL Normal [facility] Comment on above: Performed By: #### C MP, LIPID #### [facility] [address] [address] [address] Isi Bruno Cholesterol.total/Cho lesterol in HDL [Mass ratio] 4.7 {ratio} Normal [facility] Comment on above: Performed By: #### C MP, LIPID #### [facility] [address] [address] [address] Isi Bruno HDL NORMAL > or = 60 mg/dl - LO W CARDIOVASCULAR RISK <40 mg/dl - HIGH CARDIOVASCULAR RISK Normal [facility] Comment on above: Performed By: #### C MP, LIPID #### [facility] [address] [address] [address] Isi Bruno LDL CALC NORMAL SEE BELOW Normal [facility] Comment on above: Result Comment: <100 mg/dl OPTIMAL 100 - 129 mg/dl NEAR OR ABOVE OPTIMAL 130 - 159 mg/dl BORDERLINE HIGH 160 - 189 mg/dl HIGH >190 mg/dl VERY HIGH Performed By: #### C MP, LIPID #### [facility] [address] [address] [address] Isi Bruno Triglyceride [Mass/Vol] 177 mg/dL Critically high <=150 [facility] Comment on above: Performed By: #### C MP, LIPID #### [facility] [address] [address] [address] Isi Bruno VLDL CALC 35.4 mg/dL Normal [facility] Comment on above: Performed By: #### C MP, LIPID #### [facility] [address] [address] [address] Isi Bruno PROF 14(COMP METB)on 022 Albumin [Mass/Vol] 3.5 g/dL Normal 3.4-5.0 [facility] Comment on above: Performed By: #### C MP, LIPID #### [facility] [address] [place] [address] Dr. Isi Bruno Albumin/Globulin [Mass ratio] 1.0 {ratio} Normal [facility] Comment on above: Performed By: #### C MP, LIPID #### [facility] [address] [place] [address] Dr. Isi Bruno ALP [Catalytic activity/Vol] 65 U/L Normal 46-[address] [facility] Comment on above: Performed By: #### C MP, LIPID #### [facility] [address] [place] [address] Dr. Isi Bruno ALT [Catalytic activity/Vol] 15 U/L Critically low 16-[address] [facility] Comment on above: Performed By: #### C MP, LIPID #### [facility] [address] [place] [address] Dr. Isi Bruno Anion gap [Moles/Vol] 8.3 mmol/L Normal [facility] Comment on above: Performed By: #### C MP, LIPID #### [facility] [address] [place] [address] Dr. Isi Bruno AST [Catalytic activity/Vol] 12 U/L Critically low 15-[address] [facility] Comment on above: Performed By: #### C MP, LIPID #### [facility] [address] [place] [address] Dr. Isi Bruno Bilirubin [Mass/Vol] 0.4 mg/dL Normal 0.2-1.[address] [facility] Comment on above: Performed By: #### C MP, LIPID #### [facility] [address] [place] [address] Dr. Isi Bruno Calcium [Mass/Vol] 8.8 mg/dL Normal 8.5-10.1 [facility] Comment on above: Performed By: #### C MP, LIPID #### [facility] [address] [place] [address] Dr. Isi Bruno Chloride [Moles/Vol] 104 mmol/L Normal 98-[address] [facility] Comment on above: Performed By: #### C MP, LIPID #### [facility] [address] [place] [address] Dr. Isi Bruno CO2 [Moles/Vol] 28.3 mmol/L Normal 21.0-32.0 [facility] Comment on above: Performed By: #### C MP, LIPID #### [facility] [address] [place] [address] Dr. Isi Bruno Creatinine [Mass/Vol] 1.24 mg/dL Normal 0.70-1.[address] [facility] Comment on above: Performed By: #### C MP, LIPID #### [facility] [address] [place] [address] Dr. Isi Bruno EGFR-AF SWEDISH >60 Normal >=60 [facility] Comment on above: Performed By: #### C MP, LIPID #### [facility] [address] [place] [address] Dr. Isi Bruno EGFR-NON AF SWEDISH 59 mL/min/1.73m2 Critically low >=[address] [facility] Comment on above: Performed By: #### C MP, LIPID #### [facility] [address] [place] [address] Dr. Isi Bruno Globulin (S) [Mass/Vol] 3.4 g/dL Normal [facility] Comment on above: Performed By: #### C MP, LIPID #### [facility] [address] [place] [address] Dr. Isi Bruno Glucose [Mass/Vol] 101 mg/dL Normal 74-106 [facility] Comment on above: Performed By: #### C MP, LIPID #### [facility] [address] [place] [address] Dr. Isi Bruno Potassium [Moles/Vol] 4.6 mmol/L Normal 3.5-5.[address] [facility] Comment on above: Performed By: #### C MP, LIPID #### [facility] [address] [place] [address] Dr. Isi Bruno Protein [Mass/Vol] 6.9 g/dL Normal 6.4-8.2 [facility] Comment on above: Performed By: #### C MP, LIPID #### [facility] [address] [place] [address] Dr. Isi Bruno Sodium [Moles/Vol] 136 mmol/L Normal 136-145 [facility] Comment on above: Performed By: #### C MP, LIPID #### [facility] [address] [place] [address] Dr. Isi Bruno Urea nitrogen [Mass/Vol] 21.0 mg/dL Critically high 7.0-18.[address] [facility] Comment on above: Performed By: #### C MP, LIPID #### [facility] [address] [place] [address] Dr. Isi Bruno Urea nitrogen/Creatinine [Mass ratio] 16.9 mg/mg Normal [facility] Comment on above: Performed By: #### C MP, LIPID #### [facility] [address] [place] [address] Dr. Isi Bruno Covid-19 PCR ([facility])on 09-25 SARS-CoV-2 (COVID-19) RNA DENISA+probe Ql (Unsp spec) Not detected Normal NOT DETECTED [facility] Comment on above: Result Comment: This test is not yet approved or cleared by the [place] FDA. When there are no FDA-approved or cleared tests available, and other criteria are met, FDA can make tests available under an emergency access mechanism called an Emergency Use Authorization (EUA). The EUA for this test is supported by the [place] [facility] of Health and Human Service's (HHS's) declaration [...] with SARS-CoV-2. Performed By: #### C VDTB ####[facility] [address] [place], [place] [address]GlDr. Isi Bruno CBC AUTO DIFFon 08-24-2022 BASO # 0.0 103/ul Normal 0.0-0.[address] [facility] Comment on above: Performed By: #### C BC #### [facility] [address] [address] [address] Isi Bruno Basophils/100 WBC (Bld) 0.5 % Normal 0.2-2.[address] [facility] Comment on above: Performed By: #### C BC #### [facility] [address] [place] [address] Dr. Isi Bruno EO # 0.2 103/ul Normal 0.0-0.[address] [facility] Comment on above: Performed By: #### C BC #### [facility] [address] [address] [address] Isi Bruno Eosinophils/100 WBC (Bld) 2.0 % Normal 0.9-7.[address] [facility] Comment on above: Performed By: #### C BC #### [facility] [address] [address] [address] Isi Bruno Erythrocyte distribution width (RBC) [Ratio] 13.3 % Normal 11.0-15.[address] [facility] Comment on above: Performed By: #### C BC #### [facility] [address] [place] [address] Dr. Isi Bruno Hematocrit (Bld) [Volume fraction] 45.3 % Normal 42.0-54.[address] [facility] Comment on above: Performed By: #### C BC #### [facility] [address] [place] [address] Dr. Isi Bruno Hemoglobin (Bld) [Mass/Vol] 15.1 g/dL Normal 14.0-18.[address] [facility] Comment on above: Performed By: #### C BC #### [facility] [address] [address] [address] Isi Bruno IG # 0.03 10e3/ul Normal 0.00-0.[address] [facility] Comment on above: Performed By: #### C BC #### [facility] [address] [address] [address] Isi Bruno IG % 0.3 % Normal 0.0-0.[address] [facility] Comment on above: Performed By: #### C BC #### [facility] [address] [place] [address] Dr. Isi Bruno LYMPH # 1.3 103/ul Normal 1.2-3.[address] [facility] Comment on above: Performed By: #### C BC #### [facility] [address] [place] [address] Dr. Isi Bruno Lymphocytes/100 WBC (Bld) 14.9 % Critically low 20.5-60.[address] [facility] Comment on above: Performed By: #### C BC #### [facility] [address] [place] [address] Dr. Isi Bruno MANUAL DIFF REQ NO Normal [facility] Comment on above: Performed By: #### C BC #### [facility] [address] [place] [address] Dr. Isi Bruno MCH (RBC) [Entitic mass] 30.8 pg Normal 25.9-34.[address] [facility] Comment on above: Performed By: #### C BC #### [facility] [address] [place] [address] Dr. Isi Bruno MCHC (RBC) [Mass/Vol] 33.3 g/dL Normal 29.9-35.[address] [facility] Comment on above: Performed By: #### C BC #### [facility] [address] [place] [address] Dr. Isi Bruno MCV (RBC) [Entitic vol] 92.3 fL Normal 80.0-94.[address] [facility] Comment on above: Performed By: #### C BC #### [facility] [address] [place] [address] Dr. Isi Bruno MONO # 0.7 103/ul Normal 0.3-0.[address] [facility] Comment on above: Performed By: #### C BC #### [facility] [address] [place] [address] Dr. Isi Bruno Monocytes/100 WBC (Bld) 7.7 % Normal 1.7-12.[address] [facility] Comment on above: Performed By: #### C BC #### [facility] [address] [place] [address] Dr. Isi Bruno NEUT # 6.5 103/ul Normal 1.4-6.[address] [facility] Comment on above: Performed By: #### C BC #### [facility] [address] [place] [address] Dr. Isi Bruno Neutrophils/100 WBC (Bld) 74.6 % Normal 43.0-75.[address] [facility] Comment on above: Performed By: #### C BC #### [facility] [address] [place] [address] Dr. Isi Bruno Platelet mean volume (Bld) [Entitic vol] 10.4 fL Normal 9.5-13.[address] [facility] Comment on above: Performed By: #### C BC #### [facility] [address] [place] [address] Dr. Isi Bruno PLT 171 103/ul Normal 150-450 [facility] Comment on above: Performed By: #### C BC #### [facility] [address] [place] [address] Dr. Isi Bruno RBC 4.91 106/ul Normal 4.70-6.10 [facility] Comment on above: Performed By: #### C BC #### [facility] [address] [place] [address] Dr. Isi Bruno WBC 8.7 103/ul Normal 4.0-11.0 [facility] Comment on above: Performed By: #### C BC #### [facility] [address] [place] [address] Dr. Isi Bruno Covid-19 PCR ([facility]VD[facility])on 07-28 SARS-CoV-2 (COVID-19) RNA DENISA+probe Ql (Unsp spec) Not detected Normal NOT DETECTED [facility] Comment on above: Result Comment: This test is not yet approved or cleared by the [place] FDA. When there are no FDA-approved or cleared tests available, and other criteria are met, FDA can make tests available under an emergency access mechanism called an Emergency Use Authorization (EUA). The EUA for this test is supported by the [employer] of Health and Human Service's (HHS's) declaration [...] SARS-CoV-2. Performed By: #### C VDTBH #### [facility] [address] [place] [address] Dr. Isi Bruno PROTIMEon 08-24-2022 INR Coag (PPP) [Relative time] 1.04 {INR} Normal [facility] Comment on above: Performed By: #### P T, PTT #### [facility] [address] [place] [address] Dr. Isi Bruno INR GUIDELINES SEE BELOW Normal [facility] Comment on above: Result Comment: COLLIN RED INR: 2.0 - 3.0 CONDITIONS NOT LISTED BELOW 2.5 - 3.5 FOR PROSTHETIC HEART VALVE REPLACEMENT 2.5 - 3.5 RECURRENT THROMBOSIS Performed By: #### P T, PTT #### [facility] [address] [place] [address] Dr. Isi Bruno PT Coag (PPP) [Time] 11.2 s Normal 9.0-11.[address] [facility] Comment on above: Performed By: #### P T, PTT #### [facility] [address] [place], [place] [address] Dr. Isi Bruno PTTon 08-24-2022 aPTT Coag (Bld) [Time] 33.0 s Normal 22.3-36.2 [facility] Comment on above: Performed By: #### P T, PTT #### [facility] [address] [place], [place] [address] Dr. Isi Bruno US MUSC_SOFT TISSUE BXon US MUSC_SOFT TISSUE BX Begin Addendum #1 COLLECTED DATE/TIME: 08/07/2022, 14:01 EDT Final Diagnosis Report for [facility], [place] RIGHT PAROTID GLAND, ULTRASOUND GUIDED FINE [...] results from the referring physician. Normal [facility] CT NECK ST W CONon CT NECK [...] CHERRY JOHN Date: 2022-07-09 07:29 Normal [facility] INSULINon 06-18-2022 Insulin 12.2 uIU/mL Normal 2.6-24.[address] [facility] Comment on above: Performed By: #### I NSULIN ####[facility] [address] [address]orge [address] US ST HEAD_NECKon 06-17-[address] [...] CHERRY JOHN Date: 2022-06-17 10:01 Normal [facility] CBC AUTO DIFFon 06-16-2022 BASO # 0.1 103/ul Normal 0.0-0.[address] [facility] Comment on above: Performed By: #### C BC #### [facility] [address] [place] [address] Dr. Isi Bruno Basophils/100 WBC (Bld) 0.5 % Normal 0.2-2.[address] [facility] Comment on above: Performed By: #### C BC #### [facility] [address] [place] [address] Dr. Isi Bruno EO # 0.3 103/ul Normal 0.0-0.[address] [facility] Comment on above: Performed By: #### C BC #### [facility] [address] [place] [address] Dr. Iis Bruno Eosinophils/100 WBC (Bld) 2.8 % Normal 0.9-7.[address] [facility] Comment on above: Performed By: #### C BC #### [facility] [address] [place] [address] Dr. Isi Bruno Erythrocyte distribution width (RBC) [Ratio] 13.4 % Normal 11.0-15.[address] [facility] Comment on above: Performed By: #### C BC #### [facility] [address] [place] [address] Dr. Isi Bruno Hematocrit (Bld) [Volume fraction] 45.6 % Normal 42.0-54.[address] [facility] Comment on above: Performed By: #### C BC #### [facility] [address] [place] [address] Dr. Isi Bruno Hemoglobin (Bld) [Mass/Vol] 15.6 g/dL Normal 14.0-18.[address] [facility] Comment on above: Performed By: #### C BC #### [facility] [address] [place] [address] Dr. Isi Bruno IG # 0.04 10e3/ul Critically high 0.00-0.03 [facility] Comment on above: Performed By: #### C BC #### [facility] [address] [place] [address] Dr. Isi Bruno IG % 0.4 % Normal 0.0-0.[address] [facility] Comment on above: Performed By: #### C BC #### [facility] [address] [place] [address] Dr. Isi Bruno LYMPH # 1.7 103/ul Normal 1.2-3.[address] [facility] Comment on above: Performed By: #### C BC #### [facility] [address] [place] [address] Dr. Isi Bruno Lymphocytes/100 WBC (Bld) 18.6 % Critically low 20.5-60.[address] [facility] Comment on above: Performed By: #### C BC #### [facility] [address] [place] [address] Dr. Isi Bruno MANUAL DIFF REQ NO Normal [facility] Comment on above: Performed By: #### C BC #### [facility] [address] [place] [address] Dr. Isi Bruno MCH (RBC) [Entitic mass] 30.8 pg Normal 25.9-34.[address] [facility] Comment on above: Performed By: #### C BC #### [facility] [address] [place] [address] Dr. Isi Bruno MCHC (RBC) [Mass/Vol] 34.2 g/dL Normal 29.9-35.[address] [facility] Comment on above: Performed By: #### C BC #### [facility] [address] [place] [address] Dr. Isi Bruno MCV (RBC) [Entitic vol] 89.9 fL Normal 80.0-94.[address] [facility] Comment on above: Performed By: #### C BC #### [facility] [address] [place] [address] Dr. Isi Bruno MONO # 0.8 103/ul Normal 0.3-0.[address] [facility] Comment on above: Performed By: #### C BC #### [facility] [address] [place] [address] Dr. Isi Bruno Monocytes/100 WBC (Bld) 8.5 % Normal 1.7-12.[address] [facility] Comment on above: Performed By: #### C BC #### [facility] [address] [address] [address] Isi Bruno NEUT # 6.4 103/ul Normal 1.4-6.[address] [facility] Comment on above: Performed By: #### C BC #### [facility] [address] [address] [address] Isi Bruno Neutrophils/100 WBC (Bld) 69.2 % Normal 43.0-75.[address] [facility] Comment on above: Performed By: #### C BC #### [facility] [address] [address] [address] Isi Bruno Platelet mean volume (Bld) [Entitic vol] 10.0 fL Normal 9.5-13.[address] [facility] Comment on above: Performed By: #### C BC #### [facility] [address] [address] [address] Isi Bruno PLT 168 103/ul Normal 150-450 [facility] Comment on above: Performed By: #### C BC #### [facility] [address] [address] [address] Isi Bruno RBC 5.07 106/ul Normal 4.70-6.10 [facility] Comment on above: Performed By: #### C BC #### [facility] [address] [address] [address] Isi Bruno WBC 9.2 103/ul Normal 4.0-11.[address] [facility] Comment on above: Performed By: #### C BC #### [facility] [address] [address] [address] Isi Burno GLYCOHEMOGLOBIN A1Con 2021 ADA RECOMMENDATION SEE BELOW Normal [facility] Comment on above: Result Comment: ADA RECOMMENDED LIMIT 4.0 - 6.0 ADA THERAPEUTIC TARGET < 7.0 ACTION SUGGESTED > 7.0 Performed By: #### A 1C ####[facility] [address] [address]Dr. Isi Bruno Glucose [Mass/Vol] 111 mg/dL Normal [facility] Comment on above: Performed By: #### A 1C ####[facility] [address] [place], [place] [address]Sa. Isi Bruno HbA1c (Bld) [Mass fraction] 5.5 % Normal 4.5-6.[address] [facility] Comment on above: Performed By: #### A 1C ####[facility] [address] [id number] Isi Bruno LIPID PROFILEon 06-16-2022 CHOL-HDL RATIO NORM SEE BELOW Normal [facility] Comment on above: Result Comment: 3.3 - 4.4 LOW RISK 4.4 - 7.1 AVERAGE RISK 7.1 - 11.0 MODERATE RISK >11.0 HIGH RISK Performed By: #### L IPID, CMP, URIC ####[facility] [address] [id number] Isi Bruno Cholesterol [Mass/Vol] 191 mg/dL Normal <=[address] [facility] Comment on above: Performed By: #### L IPID, CMP, URIC ####[facility] [address] [id number]. Isi Bruno Cholesterol in HDL [Mass/Vol] 33 mg/dL Critically low 40-[address] [facility] Comment on above: Performed By: #### L IPID, CMP, URIC ####[facility] [address] [id number] Isi Bruno Cholesterol in LDL [Mass/Vol] 120.0 mg/dL Normal [facility] Comment on above: Performed By: #### L IPID, CMP, URIC ####[facility] [address] [place], [place] [address]Qe. Isi Bruno Cholesterol.total/Cho lesterol in HDL [Mass ratio] 5.8 {ratio} Normal [facility] Comment on above: Performed By: #### L IPID, CMP, URIC ####[facility] [address] [place], [place] [address]Kv. Isi Bruno HDL NORMAL > or = 60 mg/dl - LO W CARDIOVASCULAR RISK <40 mg/dl - HIGH CARDIOVASCULAR RISK Normal [facility] Comment on above: Performed By: #### L IPID, CMP, URIC ####[facility] [address] [address]Dr. Isi Bruno LDL CALC NORMAL SEE BELOW Normal [facility] Comment on above: Result Comment: <100 mg/dl OPTIMAL 100 - 129 mg/dl NEAR OR ABOVE OPTIMAL 130 - 159 mg/dl BORDERLINE HIGH 160 - 189 mg/dl HIGH >190 mg/dl VERY HIGH Performed By: #### L IPID, CMP, URIC ####[facility] [address] [address]Dr. Isi Bruno Triglyceride [Mass/Vol] 190 mg/dL Critically high <=150 [facility] Comment on above: Performed By: #### L IPID, CMP, URIC ####[facility] [address] [place] [address]Dr. Isi Bruno VLDL CALC 38.0 mg/dL Normal [facility] Comment on above: Performed By: #### L IPID, CMP, URIC ####[facility] [address] [place] [address]Dr. Isi Bruno PROF 14(COMP METB)on 022 Albumin [Mass/Vol] 3.4 g/dL Normal 3.4-5.0 [facility] Comment on above: Performed By: #### L IPID, CMP, URIC ####[facility] [address] [place] [address]Dr. Isi Bruno Albumin/Globulin [Mass ratio] 1.0 {ratio} Normal [facility] Comment on above: Performed By: #### L IPID, CMP, URIC ####[facility] [address] [place] [address]Dr. Isi Bruno ALP [Catalytic activity/Vol] 68 U/L Normal 46-116 [facility] Comment on above: Performed By: #### L IPID, CMP, URIC ####[facility] [address] [address]Dr. Isi Bruno ALT [Catalytic activity/Vol] 16 U/L Normal 16-[address] [facility] Comment on above: Performed By: #### L IPID, CMP, URIC ####[facility] [address] [place] [address]Dr. Isi Bruno Anion gap [Moles/Vol] 10.4 mmol/L Normal [facility] Comment on above: Performed By: #### L IPID, CMP, URIC ####[facility] [id number] [place] [address]Dr. Isi Bruno AST [Catalytic activity/Vol] 12 U/L Critically low 15-[address] [facility] Comment on above: Performed By: #### L IPID, CMP, URIC ####[facility] [address] [place] [address]Dr. Isi Bruno Bilirubin [Mass/Vol] 0.5 mg/dL Normal 0.2-1.[address] [facility] Comment on above: Performed By: #### L IPID, CMP, URIC ####[facility] [address] [place], [place] [address]Dr. Isi Bruno Calcium [Mass/Vol] 8.8 mg/dL Normal 8.5-10.1 [facility] Comment on above: Performed By: #### L IPID, CMP, URIC ####[facility] [address] [place], [place] [address]Dr. Isi Bruno Chloride [Moles/Vol] 105 mmol/L Normal 98-[address] [facility] Comment on above: Performed By: #### L IPID, CMP, URIC ####[facility] [address] [place], [place] [address]Dr. Isi Bruno CO2 [Moles/Vol] 25.9 mmol/L Normal 21.0-32.0 [facility] Comment on above: Performed By: #### L IPID, CMP, URIC ####[facility] [address] [place], [place] [address]Dr. Isi Bruno Creatinine [Mass/Vol] 1.19 mg/dL Normal 0.70-1.[address] [facility] Comment on above: Performed By: #### L IPID, CMP, URIC ####[facility] [address] [place], [place] [address]Dr. Isi Bruno EGFR-AF SWEDISH >60 Normal >=60 [facility] Comment on above: Performed By: #### L IPID, CMP, URIC ####[facility] [address] [place] [address]Dr. Isi Bruno EGFR-NON AF SWEDISH >60 Normal >=60 [facility] Comment on above: Performed By: #### L IPID, CMP, URIC ####[facility] [address] [place] [address]Dr. Isi Bruno Globulin (S) [Mass/Vol] 3.4 g/dL Normal [facility] Comment on above: Performed By: #### L IPID, CMP, URIC ####[facility] [address] [place] [address]Dr. Isi Burno Glucose [Mass/Vol] 95 mg/dL Normal 74-106 [facility] Comment on above: Performed By: #### L IPID, CMP, URIC ####[facility] [address] [place] [address]Dr. Isi Bruno Potassium [Moles/Vol] 4.3 mmol/L Normal 3.5-5.1 [facility] Comment on above: Performed By: #### L IPID, CMP, URIC ####[facility] [address] [place] [address]Dr. Isi Bruno Protein [Mass/Vol] 6.8 g/dL Normal 6.4-8.2 [facility] Comment on above: Performed By: #### L IPID, CMP, URIC ####[facility] [address] [place] [address]Dr. Isi Bruno Sodium [Moles/Vol] 137 mmol/L Normal 136-145 [facility] Comment on above: Performed By: #### L IPID, CMP, URIC ####[facility] [address] [place] [address]Dr. Isi Bruno Urea nitrogen [Mass/Vol] 23.0 mg/dL Critically high 7.0-18.0 [facility] Comment on above: Performed By: #### L IPID, CMP, URIC ####[facility] [address] [place], [place] [address]Fs. Isi Bruno Urea nitrogen/Creatinine [Mass ratio] 19.3 mg/mg Normal [facility] Comment on above: Performed By: #### L IPID, CMP, URIC ####[facility] [address] [place], [place] [address]Vl. Isi Bruno URIC ACID SERUMon 06-16-2022 Urate [Mass/Vol] 5.7 mg/dL Normal 3.5-7.2 [facility] Comment on above: Performed By: #### L IPID, CMP, URIC ####[facility] [address] [place], [place] [address]Kb. Isi Bruno Encounters Encounter Date Encounter Type Care Provider Facility Start: 10-09-2022 Encounter for prepro cedural laboratory examination DR CHRISTAL LOWERY [facility] Start: 10-09-2022 End: 10-10-2022 ambulatory FARZANEH FLORES Facility:[facility] Start: 10-08-2022 End: 10-09-2022 ambulatory FARZANEH FLORES Facility:[facility] Start: 10-05-2022 End: 10-06-2022 ambulatory FARZANEH FLORES Facility:[facility] Start: 10-05-2022 End: 10-06-2022 Encounter for preprocedural laboratory examination FARZANEH FLORES Facility:[facility] Start: 08-28-2022 End: 08-28-2022 ambulatory FARZANEH FLORES Facility:[facility] Start: 08-27-2022 Encounter for prepro cedural cardiovascular examination DR CHRISTAL LOWERY [facility] Start: 08-25-2022 ambulatory FARZANEH FLORES Facility: [facility] Start: 08-24-2022 End: 08-25-2022 ambulatory FARZANEH FLORES Facility:[facility] Start: 08-07-2022 End: 08-07-[address] CHERRY JOHN Facility:[facility] Start: 07-07-2022 End: 07-08-2022 ambulatory FARZANEH FLORES Facility:[facility] Start: 06-19-2022 Encounter for genera l adult medical examination without abnormal findings FARZANEH FLORES [facility] Start: 06-16-2022 End: 06-17-2022 ambulatory FARZANEH FLORES Facility:[facility] Start: 06-16-2022 End: 06-17-2022 Encounter for general adult medical examination without abnormal findings FARZANEH FLORES Facility:[facility] Procedures Date Procedure Procedure Detail Performing Clinician Start: 06-16-2022 PSA screening FARZANEH WYNN Comment on above: Performed By: #### P [facility] #### [facility] [address] [place] [address] [address] Isi Bruno Payers Date Payer Category Payer Private Health Insurance [id number] Self-pay 1960 Unknown [id number] 2.16.84 [id number] 1960 Unknown [id number] 2.16.84 [id number] 1960 Unknown [id number] 2.16.84 [id number] 1958 Unknown [id number] 2.16.84 [id number] 1958 Unknown [id number] 2.16.84 [id number] 1958 Unknown [id number] 2.16.84 [id number] 1958 Unknown [id number] 2.16.84 [id number] 1958 Unknown [id number] 2.16.84 [id number] 1960 Unknown [id number] 2.16.84 [id number] Clinical Note 10-09-2022 Note Date & Type Note Facility 10-09-2022 Note OPERATIVE NOTE OPERATION DATE: 10/09/2022 PRIMARY CARE PROVIDER: Melina Flores CNP SURGEON: Christal Lowery M.D. PEACE OFFICER: DAKSHA Eagle PREOPERATIVE DIAGNOSIS: Tongue lesion and [...] and prepped with Betadine, and using a [place] tip Bovie, an elliptical incision was made [...] the recovery room in good condition. [facility] Clinical Note 08-28-2022 Note Date & Type [...] the recovery room in good condition. [facility] Summary Purpose Family History No Family History Records Found Advance Directives No Advanced Directives Records Found Additional Source Comments (unrecognized sect ion and content) No Status Records Found INFORMATION SOURCE (unrecogn ized section and content) DATE CREATED AUTHOR 11/17/2022 [facility] PERTAINING TO PATIENTS WHO ARE [...] BE BASED ON THE PRIMARY CLINICAL RECORDS. [employer] [facility]. provides no warranty or guarantee of the accuracy or completeness of information in this document.
[2025-06-24 11:49] LABS: Hematocrit 45.8 % (42.0-54.0); Hemoglobin 15.5 g/dL (14.0-18.0); Immature Granulocytes Abs Auto 0.14 10^3/uL (0.00-0.03); Immature Granulocytes Pct Auto 1.0 % (0.0-0.5); Lymphocytes Absolute Auto 1.8 10^3/uL (1.2-3.8); Mean Corpuscular HGB Conc 33.8 g/dL (29.9-35.2); Mean Corpuscular Hemoglobin 31.4 pg (25.9-34.0); Mean Corpuscular Volume 92.7 fL (80.0-94.0); Platelet Count 190 10^3/uL (150-450); Red Blood Count 4.94 10^6/uL (4.70-6.10); White Blood Count 13.4 10^3/uL (4.0-11.0)
[2025-06-24 13:03] LABS: Alanine Aminotransferase 40 U/L (16-63); Albumin Globulin Ratio 1.0; Albumin Level 3.5 g/dL (3.4-5.0); Alkaline Phosphatase 69 U/L (46-116); Anion Gap 11.5; Aspartate Amino Transferase 25 U/L (15-37); Blood Urea Nitrogen 25.0 mg/dL (7.0-18.0); Calcium 8.9 mg/dL (8.5-10.1); Carbon Dioxide 27.8 mmol/L (21.0-32.0); Chloride 107 mmol/L (98-107); Cholesterol 167 mg/dL (<=200); Estimated GFR (African America >60 (>=60 mL/min/1.73m^2); Estimated GFR (Non-African Ame 55 (>=60 mL/min/1.73m^2); Free T3 1.73 pg/mL (2.18-3.98); Globulin 3.5 g/dL; Glucose 98 mg/dL (74-106); HDL Cholesterol 45 mg/dL (40-60); Potassium 4.3 mmol/L (3.5-5.1); Sodium 142 mmol/L (136-145); Thyroid Stimulating Hormone 2.319 uIU/mL (0.358-3.740); Total Protein 7.0 g/dL (6.4-8.2); Triglycerides 137 mg/dL (<=150); Uric Acid 5.4 mg/dL (3.5-7.2); VLDL CHOLESTEROL 27.4 mg/dL
== END 2025-06-24 11:26 | disposition home or self-care (01) ==
LOC: LAB 11:27
PROVIDERS: PCP Nurse Practitioner Family; Visit Provider Nurse Practitioner Family
DX: Z00.00 Encounter for general adult medical examination without abnormal findings (principal); Z12.5 Encounter for screening for malignant neoplasm of prostate
CPT/HCPCS: 36415; 80053; 80061; 83036; 83525; 84436; 84443; 84481; 84550; 85025; G0103

== ENCOUNTER 2025-06-28 15:48 | Outpatient (OUT) | payer BC, SELFPAY ==
--- NOTE | 2025-06-28 | XR_ITS ---
The [address] [address] Patient Name: HELLEN FRANCISCO MRN: [id number] date: 1960 Sex: M Assigned Patient Location: RAD Current Patient Location: [facility] Accession/Order Number: [id number] Exam Date: 06/28/2025 16:18 Report Date: 06/28/2025 16:19 At the request of: TABBY CUNNINGHAM Procedure: XR chest 2V Chest 2 views CLINICAL HISTORY: Bronchitis; J40 COMPARISON: Chest 04/28/2024 FINDINGS: Heart normal size. Lungs are clear. No free air. XR/XR chest 2V IMPRESSION: NO ACUTE CARDIOPULMONARY ABNORMALITY. Impression dictated by: Spenser Acosta Jr., DJorgeOJorge 06/28/2025 4:19 PM Dictation Location: [place] [address] Electronically authenticated by: [id number] Y Date: 06/28/2025 16:19
== END 2025-06-28 15:49 | disposition home or self-care (01) ==
PROVIDERS: PCP Nurse Practitioner Family; Visit Provider Nurse Practitioner Family
DX: J40 Bronchitis, not specified as acute or chronic (principal)
CPT/HCPCS: 71046

== ENCOUNTER 2025-08-11 15:20 | Outpatient (OUT) | payer BC, SELFPAY ==
[2025-08-11 16:06] LABS: Alanine Aminotransferase 24 U/L (16-63); Albumin Globulin Ratio 1.0; Albumin Level 3.5 g/dL (3.4-5.0); Alkaline Phosphatase 71 U/L (46-116); Anion Gap 12.8; Aspartate Amino Transferase 18 U/L (15-37); Blood Urea Nitrogen 21.0 mg/dL (7.0-18.0); Calcium 8.6 mg/dL (8.5-10.1); Carbon Dioxide 24.6 mmol/L (21.0-32.0); Chloride 108 mmol/L (98-107); Estimated GFR (African America >60 (>=60 mL/min/1.73m^2); Estimated GFR (Non-African Ame 51 (>=60 mL/min/1.73m^2); Globulin 3.5 g/dL; Glucose 100 mg/dL (74-106); Hematocrit 43.2 % (42.0-54.0); Hemoglobin 14.8 g/dL (14.0-18.0); Immature Granulocytes Abs Auto 0.02 10^3/uL (0.00-0.03); Immature Granulocytes Pct Auto 0.2 % (0.0-0.5); Lymphocytes Absolute Auto 2.1 10^3/uL (1.2-3.8); Mean Corpuscular HGB Conc 34.3 g/dL (29.9-35.2); Mean Corpuscular Hemoglobin 31.3 pg (25.9-34.0); Mean Corpuscular Volume 91.3 fL (80.0-94.0); Platelet Count 176 10^3/uL (150-450); Potassium 4.4 mmol/L (3.5-5.1); Red Blood Count 4.73 10^6/uL (4.70-6.10); Sodium 141 mmol/L (136-145); Total Protein 7.0 g/dL (6.4-8.2); White Blood Count 9.2 10^3/uL (4.0-11.0)
--- OUTSIDE RECORDS SUMMARY | 2025-08-11 16:46 | XMS_ITS | CCD ---
Author Organization [facility] Care Team Providers Care Draw Furnace Tender Name Role Phone MARISA FARZANEH Primary Care [...] source) strawberry allergenic extract Drug Allergy [facility] Repository Problems Active Problems Problem [...] 10-25-2022 Chronic Other aftercare (1 source) Other oss architect (current) drug therapy; Translations: [OTH LONG-TERM CURRENT DRUG THERAPY] Onset: 10-25-2022 Episodic Other [...] SEE BELOW Normal The [facility] Comment on above: Result Comment: 3.3 - 4.4 LOW RISK 4.4 - 7.1 AVERAGE RISK 7.1 - 11.0 MODERATE RISK >11.0 HIGH RISK Performed By: #### C MP, LIPID #### [facility] [address] [address] [address] Isi Bruno Cholesterol [Mass/Vol] 175 mg/dL Normal <=200 [facility] Comment on above: Performed By: #### C MP, LIPID #### [facility] [address] [address] [address] Isi Bruno Cholesterol in HDL [Mass/Vol] 37 mg/dL Critically low 40-60 [facility] Comment on above: Performed By: #### C MP, LIPID #### [facility] [address] [address] [address] Isi Bruno Cholesterol in LDL [Mass/Vol] 102.6 mg/dL Normal [facility] Comment on above: Performed By: #### C MP, LIPID #### [facility] [address] [address] [address] Isi Bruno Cholesterol.total/Cho lesterol in HDL [Mass ratio] 4.7 {ratio} Normal [facility] Comment on above: Performed By: #### C MP, LIPID #### [facility] [address] [address] [address] Isi Bruno HDL NORMAL > or = 60 mg/dl - LO W CARDIOVASCULAR RISK <40 mg/dl - HIGH CARDIOVASCULAR RISK Normal [facility] Comment on above: Performed By: #### C MP, LIPID #### [facility] [address] [address] [address] Isi Bruno LDL CALC NORMAL SEE BELOW Normal [facility] Comment on above: Result Comment: <100 mg/dl OPTIMAL 100 - 129 mg/dl NEAR OR ABOVE OPTIMAL 130 - 159 mg/dl BORDERLINE HIGH 160 - 189 mg/dl HIGH >190 mg/dl VERY HIGH Performed By: #### C MP, LIPID #### [facility] [address] [address] [address] Isi Bruno Triglyceride [Mass/Vol] 177 mg/dL Critically high <=150 [facility] Comment on above: Performed By: #### C MP, LIPID #### [facility] [address] [address] [address] Isi Bruno VLDL CALC 35.4 mg/dL Normal [facility] Comment on above: Performed By: #### C MP, LIPID #### [facility] [address] [address] [address] Isi Bruno PROF 14(COMP METB)on 022 Albumin [Mass/Vol] 3.5 g/dL Normal 3.4-5.0 [facility] Comment on above: Performed By: #### C MP, LIPID #### [facility] [address] [place] [address] Dr. Isi Bruno Albumin/Globulin [Mass ratio] 1.0 {ratio} Normal [facility] Comment on above: Performed By: #### C MP, LIPID #### [facility] [address] [place] [address] Dr. Isi Bruno ALP [Catalytic activity/Vol] 65 U/L Normal 46-116 [facility] Comment on above: Performed By: #### C MP, LIPID #### [facility] [address] [place] [address] Dr. Isi Bruno ALT [Catalytic activity/Vol] 15 U/L Critically low 16-63 [facility] Comment on above: Performed By: #### C MP, LIPID #### [facility] [address] [place] [address] Dr. Isi Bruno Anion gap [Moles/Vol] 8.3 mmol/L Normal [facility] Comment on above: Performed By: #### C MP, LIPID #### [facility] [address] [place] [address] Dr. Isi Bruno AST [Catalytic activity/Vol] 12 U/L Critically low 15-37 [facility] Comment on above: Performed By: #### C MP, LIPID #### [facility] [address] [place] [address] Dr. Isi Bruno Bilirubin [Mass/Vol] 0.4 mg/dL Normal 0.2-1.0 [facility] Comment on above: Performed By: #### C MP, LIPID #### [facility] [address] [place] [address] Dr. Isi Bruno Calcium [Mass/Vol] 8.8 mg/dL Normal 8.5-10.1 [facility] Comment on above: Performed By: #### C MP, LIPID #### [facility] [address] [place] [address] Dr. Isi Bruno Chloride [Moles/Vol] 104 mmol/L Normal 98-107 [facility] Comment on above: Performed By: #### C MP, LIPID #### [facility] [address] [place] [address] Dr. Isi Bruno CO2 [Moles/Vol] 28.3 mmol/L Normal 21.0-32.0 [facility] Comment on above: Performed By: #### C MP, LIPID #### [facility] [address] [place] [address] Dr. Isi Bruno Creatinine [Mass/Vol] 1.24 mg/dL Normal 0.70-1.30 [facility] Comment on above: Performed By: #### C MP, LIPID #### [facility] [address] [place] [address] Dr. Isi Bruno EGFR-AF CYMRAES >60 Normal >=60 [facility] Comment on above: Performed By: #### C MP, LIPID #### [facility] [address] [place] [address] Dr. Isi Bruno EGFR-NON AF CYMRAES 59 mL/min/1.73m2 Critically low >=60 [facility] Comment on above: Performed By: #### C MP, LIPID #### [facility] [address] [place] [address] Dr. Isi Bruno Globulin (S) [Mass/Vol] 3.4 g/dL Normal [facility] Comment on above: Performed By: #### C MP, LIPID #### [facility] [address] [place] [address] Dr. Isi Bruno Glucose [Mass/Vol] 101 mg/dL Normal 74-106 [facility] Comment on above: Performed By: #### C MP, LIPID #### [facility] [address] [place] [address] Dr. Isi Bruno Potassium [Moles/Vol] 4.6 mmol/L Normal 3.5-5.1 [facility] Comment on above: Performed By: #### C MP, LIPID #### [facility] [address] [place] [address] Dr. Isi Bruno Protein [Mass/Vol] 6.9 g/dL Normal 6.4-8.2 [facility] Comment on above: Performed By: #### C MP, LIPID #### [facility] [address] [place] [address] Dr. Isi Bruno Sodium [Moles/Vol] 136 mmol/L Normal 136-145 [facility] Comment on above: Performed By: #### C MP, LIPID #### [facility] [address] [place] [address] Dr. Isi Bruno Urea nitrogen [Mass/Vol] 21.0 mg/dL Critically high 7.0-18.0 [facility] Comment on above: Performed By: #### C MP, LIPID #### [facility] [address] [place] [address] Dr. Isi Bruno Urea nitrogen/Creatinine [Mass ratio] 16.9 mg/mg Normal [facility] Comment on above: Performed By: #### C MP, LIPID #### [facility] [address] [place] [address] Dr. Isi Bruno Covid-19 PCR ([facility])on 09-25 SARS-CoV-2 (COVID-19) RNA DENISA+probe Ql (Unsp spec) Not detected Normal NOT DETECTED [facility] Comment on above: Result Comment: This test is not yet approved or cleared by the [place] FDA. When there are no FDA-approved or cleared tests available, and other criteria are met, FDA can make tests available under an emergency access mechanism called an Emergency Use Authorization (EUA). The EUA for this test is supported by the [place] of Health and Human Service's (HHS's) declaration [...] with SARS-CoV-2. Performed By: #### C VDTB ####[facility] [address] [place], [place] [address]SmDr. Isi Bruno CBC AUTO DIFFon 08-24-2022 BASO # 0.0 103/ul Normal 0.0-0.1 [facility] Comment on above: Performed By: #### C BC #### [facility] [address] [address] [address] Isi Bruno Basophils/100 WBC (Bld) 0.5 % Normal 0.2-2.0 [facility] Comment on above: Performed By: #### C BC #### [facility] [address] [place] [address] Dr. Isi Bruno EO # 0.2 103/ul Normal 0.0-0.7 [facility] Comment on above: Performed By: #### C BC #### [facility] [address] [address] [address] Isi Bruno Eosinophils/100 WBC (Bld) 2.0 % Normal 0.9-7.0 [facility] Comment on above: Performed By: #### C BC #### [facility] [address] [address] [address] Isi Bruno Erythrocyte distribution width (RBC) [Ratio] 13.3 % Normal 11.0-15.0 [facility] Comment on above: Performed By: #### C BC #### [facility] [address] [place] [address] Dr. Isi Bruno Hematocrit (Bld) [Volume fraction] 45.3 % Normal 42.0-54.0 [facility] Comment on above: Performed By: #### C BC #### [facility] [address] [place] [address] Dr. Isi Bruno Hemoglobin (Bld) [Mass/Vol] 15.1 g/dL Normal 14.0-18.0 [facility] Comment on above: Performed By: #### C BC #### [facility] [address] [address] [address] Isi Bruno IG # 0.03 10e3/ul Normal 0.00-0.03 [facility] Comment on above: Performed By: #### C BC #### [facility] [address] [address] [address] Isi Bruno IG % 0.3 % Normal 0.0-0.5 [facility] Comment on above: Performed By: #### C BC #### [facility] [address] [place] [address] Dr. Isi Bruno LYMPH # 1.3 103/ul Normal 1.2-3.8 [facility] Comment on above: Performed By: #### C BC #### [facility] [address] [place] [address] Dr. Isi Bruno Lymphocytes/100 WBC (Bld) 14.9 % Critically low 20.5-60.0 [facility] Comment on above: Performed By: #### C BC #### [facility] [address] [place] [address] Dr. Isi Bruno MANUAL DIFF REQ NO Normal [facility] Comment on above: Performed By: #### C BC #### [facility] [address] [place] [address] Dr. Isi Bruno MCH (RBC) [Entitic mass] 30.8 pg Normal 25.9-34.0 [facility] Comment on above: Performed By: #### C BC #### [facility] [address] [place] [address] Dr. Isi Bruno MCHC (RBC) [Mass/Vol] 33.3 g/dL Normal 29.9-35.2 [facility] Comment on above: Performed By: #### C BC #### [facility] [address] [place] [address] Dr. Isi Bruno MCV (RBC) [Entitic vol] 92.3 fL Normal 80.0-94.0 [facility] Comment on above: Performed By: #### C BC #### [facility] [address] [place] [address] Dr. Isi Bruno MONO # 0.7 103/ul Normal 0.3-0.8 [facility] Comment on above: Performed By: #### C BC #### [facility] [address] [place] [address] Dr. Isi Bruno Monocytes/100 WBC (Bld) 7.7 % Normal 1.7-12.0 [facility] Comment on above: Performed By: #### C BC #### [facility] [address] [place] [address] Dr. Isi Bruno NEUT # 6.5 103/ul Normal 1.4-6.5 [facility] Comment on above: Performed By: #### C BC #### [facility] [address] [place] [address] Dr. Isi Bruno Neutrophils/100 WBC (Bld) 74.6 % Normal 43.0-75.0 [facility] Comment on above: Performed By: #### C BC #### [facility] [address] [place] [address] Dr. Isi Bruno Platelet mean volume (Bld) [Entitic vol] 10.4 fL Normal 9.5-13.5 [facility] Comment on above: Performed By: #### C BC #### [facility] [address] [place] [address] Dr. Isi Bruno PLT 171 103/ul Normal 150-450 [facility] Comment on above: Performed By: #### C BC #### [facility] [address] [place] [address] Dr. Isi Bruno RBC 4.91 106/ul Normal 4.70-6.10 [facility] Comment on above: Performed By: #### C BC #### [facility] [address] [place] [address] Dr. Isi Bruno WBC 8.7 103/ul Normal 4.0-11.0 [facility] Comment on above: Performed By: #### C BC #### [facility] [address] [place] [address] Dr. Isi Bruno Covid-19 PCR ([facility]VD[facility])on 07-28 SARS-CoV-2 (COVID-19) RNA DENISA+probe Ql (Unsp spec) Not detected Normal NOT DETECTED [facility] Comment on above: Result Comment: This test is not yet approved or cleared by the [place] FDA. When there are no FDA-approved or cleared tests available, and other criteria are met, FDA can make tests available under an emergency access mechanism called an Emergency Use Authorization (EUA). The EUA for this test is supported by the [place] of Health and Human Service's (HHS's) declaration [...] SARS-CoV-2. Performed By: #### C VDTBH #### [facility] [address] [place] [address] Dr. Isi Bruno PROTIMEon 08-24-2022 INR Coag (PPP) [Relative time] 1.04 {INR} Normal [facility] Comment on above: Performed By: #### P T, PTT #### [facility] [address] [place] [address] Dr. Isi Bruno INR GUIDELINES SEE BELOW Normal [facility] Comment on above: Result Comment: COLLIN RED INR: 2.0 - 3.0 CONDITIONS NOT LISTED BELOW 2.5 - 3.5 FOR PROSTHETIC HEART VALVE REPLACEMENT 2.5 - 3.5 RECURRENT THROMBOSIS Performed By: #### P T, PTT #### [facility] [address] [place] [address] Dr. Isi Bruno PT Coag (PPP) [Time] 11.2 s Normal 9.0-11.6 [facility] Comment on above: Performed By: #### P T, PTT #### [facility] [address] [place], [place] [address] Dr. Isi Bruno PTTon 08-24-2022 aPTT Coag (Bld) [Time] 33.0 s Normal 22.3-36.2 [facility] Comment on above: Performed By: #### P T, PTT #### [facility] [address] [place], [place] [address] Dr. Isi Bruno US MUSC_SOFT TISSUE BXon US MUSC_SOFT TISSUE BX Begin Addendum #1 COLLECTED DATE/TIME: 08/07/2022, 14:01 EDT Final Diagnosis Report for [facility] [place] RIGHT PAROTID GLAND, ULTRASOUND GUIDED FINE [...] results from the referring physician. Normal [facility] CT NECK ST W CONon [...] CHERRY JOHN Date: 2022-07-09 07:29 Normal [facility] INSULINon 06-18-2022 Insulin 12.2 uIU/mL Normal 2.6-24.9 [facility] Comment on above: Performed By: #### I NSULIN ####[facility] [address] [address] US ST HEAD_NECKon 06-17-[address] [...] CHERRY JOHN Date: 2022-06-17 10:01 Normal [facility] CBC AUTO DIFFon 06-16-2022 BASO # 0.1 103/ul Normal 0.0-0.1 [facility] Comment on above: Performed By: #### C BC #### [facility] [address] [place] [address] Dr. Isi Bruno Basophils/100 WBC (Bld) 0.5 % Normal 0.2-2.0 [facility] Comment on above: Performed By: #### C BC #### [facility] [address] [place] [address] Dr. Isi Bruno EO # 0.3 103/ul Normal 0.0-0.7 [facility] Comment on above: Performed By: #### C BC #### [facility] [address] [place] [address] Dr. Isi Bruno Eosinophils/100 WBC (Bld) 2.8 % Normal 0.9-7.0 [facility] Comment on above: Performed By: #### C BC #### [facility] [address] [place] [address] Dr. Isi Bruno Erythrocyte distribution width (RBC) [Ratio] 13.4 % Normal 11.0-15.0 [facility] Comment on above: Performed By: #### C BC #### [facility] [address] [place] [address] Dr. Isi Bruno Hematocrit (Bld) [Volume fraction] 45.6 % Normal 42.0-54.0 [facility] Comment on above: Performed By: #### C BC #### [facility] [address] [place] [address] Dr. Isi Bruno Hemoglobin (Bld) [Mass/Vol] 15.6 g/dL Normal 14.0-18.0 [facility] Comment on above: Performed By: #### C BC #### [facility] [address] [place] [address] Dr. Isi Bruno IG # 0.04 10e3/ul Critically high 0.00-0.03 [facility] Comment on above: Performed By: #### C BC #### [facility] [address] [place] [address] Dr. Isi Bruno IG % 0.4 % Normal 0.0-0.5 [facility] Comment on above: Performed By: #### C BC #### [facility] [address] [place] [address] Dr. Isi Bruno LYMPH # 1.7 103/ul Normal 1.2-3.8 [facility] Comment on above: Performed By: #### C BC #### [facility] [address] [place] [address] Dr. Isi Bruno Lymphocytes/100 WBC (Bld) 18.6 % Critically low 20.5-60.0 [facility] Comment on above: Performed By: #### C BC #### [facility] [address] [place] [address] Dr. Isi Bruno MANUAL DIFF REQ NO Normal [facility] Comment on above: Performed By: #### C BC #### [facility] [address] [place] [address] Dr. Isi Bruno MCH (RBC) [Entitic mass] 30.8 pg Normal 25.9-34.0 [facility] Comment on above: Performed By: #### C BC #### [facility] [address] [place] [address] Dr. Isi Bruno MCHC (RBC) [Mass/Vol] 34.2 g/dL Normal 29.9-35.2 [facility] Comment on above: Performed By: #### C BC #### [facility] [address] [place] [address] Dr. Isi Bruno MCV (RBC) [Entitic vol] 89.9 fL Normal 80.0-94.0 [facility] Comment on above: Performed By: #### C BC #### [facility] [address] [place] [address] Dr. Isi Bruno MONO # 0.8 103/ul Normal 0.3-0.8 [facility] Comment on above: Performed By: #### C BC #### [facility] [address] [place] [address] Dr. Isi Bruno Monocytes/100 WBC (Bld) 8.5 % Normal 1.7-12.0 [facility] Comment on above: Performed By: #### C BC #### [facility] [address] [address] [address] Isi Bruno NEUT # 6.4 103/ul Normal 1.4-6.5 [facility] Comment on above: Performed By: #### C BC #### [facility] [address] [address] [address] Isi Bruno Neutrophils/100 WBC (Bld) 69.2 % Normal 43.0-75.0 [facility] Comment on above: Performed By: #### C BC #### [facility] [address] [address] [address] Isi Bruno Platelet mean volume (Bld) [Entitic vol] 10.0 fL Normal 9.5-13.5 [facility] Comment on above: Performed By: #### C BC #### [facility] [address] [address] [address] Isi Bruno PLT 168 103/ul Normal 150-450 [facility] Comment on above: Performed By: #### C BC #### [facility] [address] [address] [address] Isi Bruno RBC 5.07 106/ul Normal 4.70-6.10 [facility] Comment on above: Performed By: #### C BC #### [facility] [address] [address] [address] Isi Bruno WBC 9.2 103/ul Normal 4.0-11.0 [facility] Comment on above: Performed By: #### C BC #### [facility] [address] [address] [address] Isi Bruno GLYCOHEMOGLOBIN A1Con 2021 ADA RECOMMENDATION SEE BELOW Normal [facility] Comment on above: Result Comment: ADA RECOMMENDED LIMIT 4.0 - 6.0 ADA THERAPEUTIC TARGET < 7.0 ACTION SUGGESTED > 7.0 Performed By: #### A 1C ####[facility] [address] [address]Dr. Isi Bruno Glucose [Mass/Vol] 111 mg/dL Normal [facility] Comment on above: Performed By: #### A 1C ####[facility] [address] [place], [place] [address]Zy. Isi Bruno HbA1c (Bld) [Mass fraction] 5.5 % Normal 4.5-6.2 [facility] Comment on above: Performed By: #### A 1C ####[facility] [address] [id number] Isi Bruno LIPID PROFILEon 06-16-2022 CHOL-HDL RATIO NORM SEE BELOW Normal [facility] Comment on above: Result Comment: 3.3 - 4.4 LOW RISK 4.4 - 7.1 AVERAGE RISK 7.1 - 11.0 MODERATE RISK >11.0 HIGH RISK Performed By: #### L IPID, CMP, URIC ####[facility] [address] [id number] Isi Bruno Cholesterol [Mass/Vol] 191 mg/dL Normal <=200 [facility] Comment on above: Performed By: #### L IPID, CMP, URIC ####[facility] [address] [id number]. Isi Bruno Cholesterol in HDL [Mass/Vol] 33 mg/dL Critically low 40-60 [facility] Comment on above: Performed By: #### L IPID, CMP, URIC ####[facility] [address] [id number]. Isi Bruno Cholesterol in LDL [Mass/Vol] 120.0 mg/dL Normal [facility] Comment on above: Performed By: #### L IPID, CMP, URIC ####[facility] [address] [place], [place] [address]Ez. Isi Bruno Cholesterol.total/Cho lesterol in HDL [Mass ratio] 5.8 {ratio} Normal [facility] Comment on above: Performed By: #### L IPID, CMP, URIC ####[facility] [address] [place], [place] [address]Na. Isi Bruno HDL NORMAL > or = 60 mg/dl - LO W CARDIOVASCULAR RISK <40 mg/dl - HIGH CARDIOVASCULAR RISK Normal [facility] Comment on above: Performed By: #### L IPID, CMP, URIC ####[facility] [address] [address]Dr. Isi Bruno LDL CALC NORMAL SEE BELOW Normal [facility] Comment on above: Result Comment: <100 mg/dl OPTIMAL 100 - 129 mg/dl NEAR OR ABOVE OPTIMAL 130 - 159 mg/dl BORDERLINE HIGH 160 - 189 mg/dl HIGH >190 mg/dl VERY HIGH Performed By: #### L IPID, CMP, URIC ####[facility] [address] [address]Dr. Isi Bruno Triglyceride [Mass/Vol] 190 mg/dL Critically high <=150 [facility] Comment on above: Performed By: #### L IPID, CMP, URIC ####[facility] [address] [address]Dr. Isi Bruno VLDL CALC 38.0 mg/dL Normal [facility] Comment on above: Performed By: #### L IPID, CMP, URIC ####[facility] [address] [address]Dr. Isi Bruno PROF 14(COMP METB)on 022 Albumin [Mass/Vol] 3.4 g/dL Normal 3.4-5.0 [facility] Comment on above: Performed By: #### L IPID, CMP, URIC ####[facility] [address] [address]Dr. Isi Bruno Albumin/Globulin [Mass ratio] 1.0 {ratio} Normal [facility] Comment on above: Performed By: #### L IPID, CMP, URIC ####[facility] [address] [address]Dr. Isi Bruno ALP [Catalytic activity/Vol] 68 U/L Normal 46-116 [facility] Comment on above: Performed By: #### L IPID, CMP, URIC ####[facility] [address] [place] [address]Dr. Isi Bruno ALT [Catalytic activity/Vol] 16 U/L Normal 16-63 [facility] Comment on above: Performed By: #### L IPID, CMP, URIC ####[facility] [address] [place] [address]Dr. Isi Bruno Anion gap [Moles/Vol] 10.4 mmol/L Normal [facility] Comment on above: Performed By: #### L IPID, CMP, URIC ####[facility] [address] [place] [address]Dr. Isi Bruno AST [Catalytic activity/Vol] 12 U/L Critically low 15-37 [facility] Comment on above: Performed By: #### L IPID, CMP, URIC ####[facility] [address] [place] [address]Dr. Isi Bruno Bilirubin [Mass/Vol] 0.5 mg/dL Normal 0.2-1.0 [facility] Comment on above: Performed By: #### L IPID, CMP, URIC ####[facility] [address] [place], [place] [address]Dr. Isi Bruno Calcium [Mass/Vol] 8.8 mg/dL Normal 8.5-10.1 [facility] Comment on above: Performed By: #### L IPID, CMP, URIC ####[facility] [address] [place], [place] [address]Dr. Isi Bruno Chloride [Moles/Vol] 105 mmol/L Normal 98-107 [facility] Comment on above: Performed By: #### L IPID, CMP, URIC ####[facility] [address] [place], [place] [address]Dr. Isi Bruno CO2 [Moles/Vol] 25.9 mmol/L Normal 21.0-32.0 [facility] Comment on above: Performed By: #### L IPID, CMP, URIC ####[facility] [address] [place], [place] [address]Dr. Isi Bruno Creatinine [Mass/Vol] 1.19 mg/dL Normal 0.70-1.30 [facility] Comment on above: Performed By: #### L IPID, CMP, URIC ####[facility] [id number] [place], [place] [address]Dr. Isi Bruno EGFR-AF CYMRAES >60 Normal >=60 [facility] Comment on above: Performed By: #### L IPID, CMP, URIC ####[facility] [id number] [place] [address]Dr. Isi Bruno EGFR-NON AF CYMRAES >60 Normal >=60 [facility] Comment on above: Performed By: #### L IPID, CMP, URIC ####[facility] [id number] [place] [address]Dr. Isi Bruno Globulin (S) [Mass/Vol] 3.4 g/dL Normal [facility] Comment on above: Performed By: #### L IPID, CMP, URIC ####[facility] [address] [place] [address]Dr. Isi Bruno Glucose [Mass/Vol] 95 mg/dL Normal 74-106 [facility] Comment on above: Performed By: #### L IPID, CMP, URIC ####[facility] [id number] [place] [address]Dr. Isi Bruno Potassium [Moles/Vol] 4.3 mmol/L Normal 3.5-5.1 [facility] Comment on above: Performed By: #### L IPID, CMP, URIC ####[facility] [id number] [place] [address]Dr. Isi Bruno Protein [Mass/Vol] 6.8 g/dL Normal 6.4-8.2 [facility] Comment on above: Performed By: #### L IPID, CMP, URIC ####[facility] [id number] [place] [address]Dr. Isi Bruno Sodium [Moles/Vol] 137 mmol/L Normal 136-145 [facility] Comment on above: Performed By: #### L IPID, CMP, URIC ####[facility] [address] [place] [address]Dr. Isi Bruno Urea nitrogen [Mass/Vol] 23.0 mg/dL Critically high 7.0-18.0 [facility] Comment on above: Performed By: #### L IPID, CMP, URIC ####[facility] [address] [place], [place] [address]Qb. Isi Bruno Urea nitrogen/Creatinine [Mass ratio] 19.3 mg/mg Normal [facility] Comment on above: Performed By: #### L IPID, CMP, URIC ####[facility] [address] [place], [place] [address]Xl. Isi Bruno URIC ACID SERUMon 06-16-2022 Urate [Mass/Vol] 5.7 mg/dL Normal 3.5-7.2 [facility] Comment on above: Performed By: #### L IPID, CMP, URIC ####[facility] [address] [place], [place] [address]He. Isi Bruno Encounters Encounter Date Encounter Type Care Provider Facility Start: 10-09-2022 Encounter for prepro cedural laboratory examination DR CHRISTAL LOWERY [facility] Start: 10-09-2022 End: 10-10-2022 ambulatory FARZANEH FLORES Facility:[facility] Start: 10-08-2022 End: 10-09-2022 ambulatory FARZANEH FLORES Facility:[facility] Start: 10-05-2022 End: 10-06-2022 ambulatory FARZANEH FLORES Facility:[facility] Start: 10-05-2022 End: 10-06-2022 Encounter for preprocedural laboratory examination FARZANEH FLORES Facility:[facility] Start: 08-28-2022 End: 08-28-2022 ambulatory FARZANEH FLORES Facility:[facility] Start: 08-27-2022 Encounter for prepro cedural cardiovascular examination DR CHRISTAL LOWERY [facility] Start: 08-25-2022 ambulatory FARZANEH FLORES Facility: [facility] Start: 08-24-2022 End: 08-25-2022 ambulatory FARZANEH FLORES Facility:[facility] Start: 08-07-2022 End: 08-07-[address] CHERRY JOHN Facility:[facility] Start: 07-07-2022 End: 07-08-2022 ambulatory FARZANEH FLORES Facility:[facility] Start: 06-19-2022 Encounter for genera l adult medical examination without abnormal findings FARZANEH FLORES [facility] Start: 06-16-2022 End: 06-17-2022 ambulatory FARZANEH FLORES Facility:[facility] Start: 06-16-2022 End: 06-17-2022 Encounter for general adult medical examination without abnormal findings FARZANEH FLORES Facility:[facility] Procedures Date Procedure Procedure Detail Performing Clinician Start: 06-16-2022 PSA screening FARZANEH WYNN Comment on above: Performed By: #### P [facility] #### [facility] [address] [place] [address] [address] Isi Bruno Payers Date Payer Category Payer Private Health Insurance [id number] Self-pay 1960 Unknown [id number] 2.16.84 [id number] 1960 Unknown [id number] 2.16.84 [id number] 1958 Unknown [id number] 2.16.84 [id number] 1958 Unknown [id number] 2.16.84 [id number] 1958 Unknown [id number] 2.16.84 [id number] 1958 Unknown [id number] 2.16.84 [id number] 1958 Unknown [id number] 2.16.84 [id number] 1958 Unknown [id number] 2.16.84 [id number] 1958 Unknown [id number] 2.16.84 [id number] Clinical Note 10-09-2022 Note Date & Type Note Facility 10-09-2022 Note OPERATIVE NOTE OPERATION DATE: 10/09/2022 PRIMARY CARE PROVIDER: Melina Flores CNP SURGEON: Christal Lowery M.D. PRODUCT APPLICATIONS ENGINEER: DAKSHA Eagle PREOPERATIVE DIAGNOSIS: Tongue lesion and [...] After induction of general endotracheal anesthesia, a Arma mouth gag was put in position, tongue was grasped and prepped with Betadine, and using a [place] tip Bovie, an elliptical incision was made [...] the recovery room in good condition. [facility] Clinical Note 08-28-2022 Note Date [...] the recovery room in good condition. [facility] Summary Purpose Family History No Family History Records Found Advance Directives No Advanced Directives Records Found Additional Source Comments (unrecognized sect ion and content) No Status Records Found INFORMATION SOURCE (unrecogn ized section and content) DATE CREATED AUTHOR 11/17/2022 [facility] [place] [facility] PERTAINING TO PATIENTS [...] BE BASED ON THE PRIMARY CLINICAL RECORDS. [employer] [facility]. provides no warranty or guarantee of the accuracy or completeness of information in this document.
== END 2025-08-11 15:21 | disposition home or self-care (01) ==
PROVIDERS: PCP Nurse Practitioner Family; Visit Provider Nurse Practitioner Family
DX: I10 Essential (primary) hypertension (principal); D72.829 Elevated white blood cell count, unspecified
CPT/HCPCS: 36415; 80053; 85025